=== PATIENT | female | born 1960 | race Caucasian/White ===

== ENCOUNTER 2017-08-24 11:00 | Observation (INO) | payer OTHER ==
[2017-08-24] MEDS ORDERED: NS 1,000 ML IV ONE (11:19)
--- NOTE | 2017-08-24 11:35 | CPEKG ---
Heart Rate: 72 RR Interval: 833 P-R Interval: 156 QRSD Interval: 76 QT Interval: 380 QTC Interval: 416 P [place]: 65 QRS [place]: 79 T Wave [place]: 24 EKG Severity - BORDERLINE ECG - EKG Impression: SINUS RHYTHM EKG Impression: PROBABLE LEFT ATRIAL ABNORMALITY Electronically Signed By: Santos Ortiz 24-Aug-2017 14:14:08
[2017-08-24 11:50] LABS: PLATELET COUNT 128 10^3/uL (150-400)
[2017-08-24 12:06] LABS: INR 1.09 (0.83-1.16)
--- NOTE | 2017-08-24 12:21 | PDHPUP ---
History & Physical Update H&P update statement: This history and physical update is based on an assessment of the patient which was completed after admission or registration (within 24 hours), but prior to the surgery/procedure. H&P update: H&P reviewed & patient examined, no change in patient's condition since H&P completed
[2017-08-24] MEDS ORDERED: MIDAZOLAM 2 MG/2 ML VIAL IVP ONE (12:42)
--- NOTE | 2017-08-24 12:42 | PDANEPAE ---
ANE History of Present Illness 57 yo for svt ablation ANE Past Medical History - Cardiovascular History Hx Hypertension: No Hx Arrhythmias: Yes Hx Chest Pain: No Hx Coronary Artery / Peripheral Vascular Disease: No Hx CHF / Valvular Disease: Yes - Pulmonary History Hx COPD: No Hx Asthma/Reactive Airway Disease: No Hx Recent Upper Respiratory Infection: No Hx Oxygen in Use at Home: No ANE Review of Systems Review of Systems: - Exercise capacity METS (RN): 4 METS ANE Patient History - Allergies Allergies/Adverse Reactions: No Known Allergies Allergy (Unverified 08/17/17 10:15) - Home Medications Home medications: home medication list seen and reviewed Home Medications: Cholecalciferol Vit D3 [Vitamin D3 (*)] 50,000 unit PO Q21D 08/19/17 [Last Taken Unknown] Metoprolol Succinate Xr [Toprol Xl 50 mg (*)] 50 mg PO DAILY 08/19/17 [Last Taken Unknown] Triamterene/Hydrochlorothiazid [Triamterene-Hctz 75-50 mg Tab] 1 each PO DAILY 08/19/17 [Last Taken Unknown] Warfarin Sodium [Coumadin 5MG (*)] 5 mg PO DAILY16 08/19/17 [Last Taken Unknown] - NPO status NPO Status: no food or drink >8 hours - Anes Hx Anes Hx: no prior problems ANE Labs/Vital Signs - Labs Result Diagrams: 08/24/17 11:35 08/24/17 11:35 ANE Physical Exam - Airway Neck exam: FROM Mallampati Score: Class 2 Mouth exam: normal dental/mouth exam - Pulmonary Pulmonary: no respiratory distress - Cardiovascular Cardiovascular: regular rate and rhythym ANE Anesthesia Plan Anesthesia Plan: general endotracheal anesthesia
[2017-08-24] MEDS ORDERED: ISOPROTERENOL HCL/D5W 0.2 MG/50 ML BAG IV ONE (12:52)
[2017-08-24] MEDS ORDERED: HEPARIN 10,000 UNIT/10 ML MDV ONE (12:52)
[2017-08-24] MEDS ORDERED: LIDOCAINE 1% 300 MG/30 ML SDV ONE (12:52)
[2017-08-24] MEDS ORDERED: BUPIVACAINE 0.5% 30 ML SDV ONE (12:52)
[2017-08-24] MEDS ORDERED: REMIFENTANIL HCL 1 MG VIAL ONE (13:16)
[2017-08-24] MEDS ORDERED: fentaNYL 100 MCG/2 ML INJ ONE (13:16)
[2017-08-24] MEDS ORDERED: PROPOFOL/EMULSION 500 MG/50 ML BOTTLE IV ONE (13:17)
[2017-08-24] MEDS ORDERED: ATROPINE SULFATE 1 MG/10 ML SYR ONE (15:50)
--- NOTE | 2017-08-24 16:17 | POSTANESTH ---
Post Anesthetic Evaluation Cardiovascular Status: Normal, Stable Respiratory Status: Normal, Stable Level of Consciousness/Mental Status: Can Participate in Eval Pain Control: Adequate, Prn Tx Ordered Nausea/Vomiting Control: Adequate, Prn Tx Ordered Complications Possibly Related to Anesthesia: None Noted
--- NOTE | 2017-08-24 16:22 | EPPROC ---
Electrophysiology Procedure Note: ELECTROPHYSIOLOGIC STUDY AND CATHETER MEDIATED ABLATION OF SLOW/FAST AV ROBERTO REENTRY TACHYCARDIA PROCEDURES PERFORMED: 36464-36 EP evaluation with RA/RV/LA pace/record, with arrhythmia induction 03775-97 EP evaluation with RA/RV pace record, insert/reposition catheter, with arrhythmia induction 62390 Intracardiac catheter ablation, SVT arrhythmogenic focus 77083 3D mapping Fluoroscopy LINQ monitor implant INDICATION: Recurrent SVT despite beta consuelo therapy x 8 years PROCEDURE: Catheters & Anesthesia: The patient arrived in the Electrophysiology Laboratory in the fasting state. The right clavicular region, right groin, and left groin area were prepped and draped in the usual sterile manner. Anesthesiologist Dr. Meadows administered general anesthesia. Appropriate non-invasive blood pressure, pulse oximetry and end-tidal CO2 monitoring was established. All catheters were placed percutaneously using the modified Seldinger technique , and advanced into position under fluoroscopic guidance. One #6 [place] hexapolar non-deflectable electrode catheter was inserted into the right atrial appendage via the left femoral vein (2mm spacing; except the proximal ring which was 25cm from the tip used for unipolar recordings). One #7 [place] deflectable octapolar electrode catheter was advanced to the His-bundle position via the left femoral vein (2mm spacing). One #7 [place] deflectable quadrapolar catheter was advanced to the anteroseptal right ventricle via the right femoral vein. One #7 [place] deflectable catheter with 10 pairs of electrodes was placed via the right femoral vein into the coronary sinus. Heparin was given to keep ACT > 180 s. Programmed stimulation was performed from the right atrium, right ventricle and coronary sinus (left atrium). Parahisian pacing demonstrated constant H-A interval with changing V-A intervals and stimulus-A intervals during capture and loss of capture of proximal RBB proving retrograde conduction over AV node. AVNRT was induced easily at baseline without meds with PAC. Ventricular extrastimuli delivered during tachycardia without altering antegrade His bundle activation did not advance next atrial potential, indicating that the tachycardia was not utilizing an accessory pathway for retrograde conduction. VA interval was 10 ms. Post entrainment of the tachycardia from the ventricle, there was VAHV response. Mapping of the right atrium and coronary sinus during AVNRT identified earliest atrial activation above the tendon of [place] at a level slightly posterior to the level of the His bundle, consistent with retrograde conduction over the fast AV roberto pathway. A #8 [place] deflectable quadrapolar electrode catheter (2mm-5mm-2mm spacing) with 4 mm tip electrode and sensor for the 3D mapping Carto system was advanced to the right atrium. 3 D mapping of the inter-atrial septum and coronary sinus was performed and location of the AV node was marked. A SL2 sheath was used. RF applications were delivered to the region between the tricuspid annulus and the coronary sinus ostium, at the level of the upper edge of the coronary sinus ostium. Radiofrequency applications were also delivered along the roof of the proximal coronary sinus. Junctional rhythm occurred during all of the RF applications. Programmed stimulation was continued post ablation at baseline and during graded doses of isoproterenol upto 4mcg/min. Sustained AVNRT was not inducible. There were no echo beats. 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 She has not had atrial fibrillation. Therefore a LINQ monitor was placed at the end of the procedure in the parasternal L 4thICS to monitor for atrial fibrillation. The catheters were removed. The long sheath was changed to a short 9 Fr sheath. The patient was transferred to the cardiovascular holding area in stable condition. Vascular access sheaths were removed in the holding area. There were no apparent complications. Results: A. Spontaneous Intervals: Pre ablation SCL 790 ms AH 80 ms HV 35 ms Post ablation SCL 770 ms AH 75 ms HV 35 ms B. Antegrade AV roberto function (decremental pacing) Pre ablation FPERP 440 ms , AH jump then SVT occurred reproducibly Post ablation FPERP 400 ms WBB CL 390 ms C. Retrograde AV roberto function (decremental pacing) Pre ablation FPERP 400 ms WBB CL 390 ms D. Arrhythmias: Sustained slow/fast AVNRT Cycle length 400 ms, AH interval 360 ms, GRAY interval 40 ms VA interval 10 ms CONCLUSIONS 1. AV roberto reentrant tachycardia using the slow AV roberto pathway for antegrade conduction and the fast AV roberto pathway for retrograde conduction. ( Slow/fast AVNRT). 2. Successful ablation of the slow AV roberto pathway with elimination of 1:1 antegrade conduction over the slow AV roberto pathway, all retrograde conduction over the slow AV roberto pathway and the inducibility of AVNRT. 3. No complications. 4. LINQ monitor implant to assess for AFIB in patient with mitral stenosis. Patient Problems: Problems Problem Status Onset Supraventricular tachycardia Acute
--- NOTE | 2017-08-24 16:22 | EPPROC ---
Electrophysiology Procedure Note: ELECTROPHYSIOLOGIC STUDY AND CATHETER MEDIATED ABLATION OF SLOW/FAST AV ROBERTO REENTRY TACHYCARDIA PROCEDURES PERFORMED: 24299-47 EP evaluation with RA/RV/LA pace/record, with arrhythmia induction 46751-52 EP evaluation with RA/RV pace record, insert/reposition catheter, with arrhythmia induction 70220 Intracardiac catheter ablation, SVT arrhythmogenic focus 17156 3D mapping Fluoroscopy LINQ monitor implant INDICATION: Recurrent SVT despite beta consuelo therapy x 8 years PROCEDURE: Catheters & Anesthesia: The patient arrived in the Electrophysiology Laboratory in the fasting state. The right clavicular region, right groin, and left groin area were prepped and draped in the usual sterile manner. Anesthesiologist Dr. Meadows administered general anesthesia. Appropriate non-invasive blood pressure, pulse oximetry and end-tidal CO2 monitoring was established. All catheters were placed percutaneously using the modified Seldinger technique , and advanced into position under fluoroscopic guidance. One #6 [place] hexapolar non-deflectable electrode catheter was inserted into the right atrial appendage via the left femoral vein (2mm spacing; except the proximal ring which was 25cm from the tip used for unipolar recordings). One #7 [place] deflectable octapolar electrode catheter was advanced to the His-bundle position via the left femoral vein (2mm spacing). One #7 [place] deflectable quadrapolar catheter was advanced to the anteroseptal right ventricle via the right femoral vein. One #7 [place] deflectable catheter with 10 pairs of electrodes was placed via the right femoral vein into the coronary sinus. Heparin was given to keep ACT > 180 s. Programmed stimulation was performed from the right atrium, right ventricle and coronary sinus (left atrium). Parahisian pacing demonstrated constant H-A interval with changing V-A intervals and stimulus-A intervals during capture and loss of capture of proximal RBB proving retrograde conduction over AV node. AVNRT was induced easily at baseline without meds with PAC. Ventricular extrastimuli delivered during tachycardia without altering antegrade His bundle activation did not advance next atrial potential, indicating that the tachycardia was not utilizing an accessory pathway for retrograde conduction. VA interval was 10 ms. Post entrainment of the tachycardia from the ventricle, there was VAHV response. Mapping of the right atrium and coronary sinus during AVNRT identified earliest atrial activation above the tendon of [place] at a level slightly posterior to the level of the His bundle, consistent with retrograde conduction over the fast AV roberto pathway. A #8 [place] deflectable quadrapolar electrode catheter (2mm-5mm-2mm spacing) with 4 mm tip electrode and sensor for the 3D mapping Carto system was advanced to the right atrium. 3 D mapping of the inter-atrial septum and coronary sinus was performed and location of the AV node was marked. A SL2 sheath was used. RF applications were delivered to the region between the tricuspid annulus and the coronary sinus ostium, at the level of the upper edge of the coronary sinus ostium. Radiofrequency applications were also delivered along the roof of the proximal coronary sinus. Junctional rhythm occurred during all of the RF applications. Programmed stimulation was continued post ablation at baseline and during graded doses of isoproterenol upto 4mcg/min. Sustained AVNRT was not inducible. There were no echo beats. 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 She has not had atrial fibrillation. Therefore a LINQ monitor was placed at the end of the procedure in the parasternal L 4thICS to monitor for atrial fibrillation. The catheters were removed. The long sheath was changed to a short 9 Fr sheath. The patient was transferred to the cardiovascular holding area in stable condition. Vascular access sheaths were removed in the holding area. There were no apparent complications. Results: A. Spontaneous Intervals: Pre ablation SCL 790 ms AH 80 ms HV 35 ms Post ablation SCL 770 ms AH 75 ms HV 35 ms B. Antegrade AV roberto function (decremental pacing) Pre ablation FPERP 440 ms , AH jump then SVT occurred reproducibly Post ablation FPERP 400 ms WBB CL 390 ms C. Retrograde AV roberto function (decremental pacing) Pre ablation FPERP 400 ms WBB CL 390 ms D. Arrhythmias: Sustained slow/fast AVNRT Cycle length 400 ms, AH interval 360 ms, GRAY interval 40 ms VA interval 10 ms CONCLUSIONS 1. AV roberto reentrant tachycardia using the slow AV roberto pathway for antegrade conduction and the fast AV roberto pathway for retrograde conduction. ( Slow/fast AVNRT). 2. Successful ablation of the slow AV roberto pathway with elimination of 1:1 antegrade conduction over the slow AV roberto pathway, all retrograde conduction over the slow AV roberto pathway and the inducibility of AVNRT. 3. No complications. 4. LINQ monitor implant to assess for AFIB in patient with mitral stenosis. Patient Problems: Problems Problem Status Onset Supraventricular tachycardia Acute
--- NOTE | 2017-08-24 16:22 | EPPROC ---
Electrophysiology Procedure Note: ELECTROPHYSIOLOGIC STUDY AND CATHETER MEDIATED ABLATION OF SLOW/FAST AV ROBERTO REENTRY TACHYCARDIA PROCEDURES PERFORMED: 18572-63 EP evaluation with RA/RV/LA pace/record, with arrhythmia induction 70906-65 EP evaluation with RA/RV pace record, insert/reposition catheter, with arrhythmia induction 75057 Intracardiac catheter ablation, SVT arrhythmogenic focus 16381 3D mapping Fluoroscopy LINQ monitor implant INDICATION: Recurrent SVT despite beta consuelo therapy x 8 years PROCEDURE: Catheters & Anesthesia: The patient arrived in the Electrophysiology Laboratory in the fasting state. The right clavicular region, right groin, and left groin area were prepped and draped in the usual sterile manner. Anesthesiologist Dr. Meadows administered general anesthesia. Appropriate non-invasive blood pressure, pulse oximetry and end-tidal CO2 monitoring was established. All catheters were placed percutaneously using the modified Seldinger technique , and advanced into position under fluoroscopic guidance. One #6 [place] hexapolar non-deflectable electrode catheter was inserted into the right atrial appendage via the left femoral vein (2mm spacing; except the proximal ring which was 25cm from the tip used for unipolar recordings). One #7 [place] deflectable octapolar electrode catheter was advanced to the His-bundle position via the left femoral vein (2mm spacing). One #7 [place] deflectable quadrapolar catheter was advanced to the anteroseptal right ventricle via the right femoral vein. One #7 [place] deflectable catheter with 10 pairs of electrodes was placed via the right femoral vein into the coronary sinus. Heparin was given to keep ACT > 180 s. Programmed stimulation was performed from the right atrium, right ventricle and coronary sinus (left atrium). Parahisian pacing demonstrated constant H-A interval with changing V-A intervals and stimulus-A intervals during capture and loss of capture of proximal RBB proving retrograde conduction over AV node. AVNRT was induced easily at baseline without meds with PAC. Ventricular extrastimuli delivered during tachycardia without altering antegrade His bundle activation did not advance next atrial potential, indicating that the tachycardia was not utilizing an accessory pathway for retrograde conduction. VA interval was 10 ms. Post entrainment of the tachycardia from the ventricle, there was VAHV response. Mapping of the right atrium and coronary sinus during AVNRT identified earliest atrial activation above the tendon of [place] at a level slightly posterior to the level of the His bundle, consistent with retrograde conduction over the fast AV roberto pathway. A #8 [place] deflectable quadrapolar electrode catheter (2mm-5mm-2mm spacing) with 4 mm tip electrode and sensor for the 3D mapping Carto system was advanced to the right atrium. 3 D mapping of the inter-atrial septum and coronary sinus was performed and location of the AV node was marked. A SL2 sheath was used. RF applications were delivered to the region between the tricuspid annulus and the coronary sinus ostium, at the level of the upper edge of the coronary sinus ostium. Radiofrequency applications were also delivered along the roof of the proximal coronary sinus. Junctional rhythm occurred during all of the RF applications. Programmed stimulation was continued post ablation at baseline and during graded doses of isoproterenol upto 4mcg/min. Sustained AVNRT was not inducible. There were no echo beats. 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 She has not had atrial fibrillation. Therefore a LINQ monitor was placed at the end of the procedure in the parasternal L 4thICS to monitor for atrial fibrillation. The catheters were removed. The long sheath was changed to a short 9 Fr sheath. The patient was transferred to the cardiovascular holding area in stable condition. Vascular access sheaths were removed in the holding area. There were no apparent complications. Results: A. Spontaneous Intervals: Pre ablation SCL 790 ms AH 80 ms HV 35 ms Post ablation SCL 770 ms AH 75 ms HV 35 ms B. Antegrade AV roberto function (decremental pacing) Pre ablation FPERP 440 ms , AH jump then SVT occurred reproducibly Post ablation FPERP 400 ms WBB CL 390 ms C. Retrograde AV roberto function (decremental pacing) Pre ablation FPERP 400 ms WBB CL 390 ms D. Arrhythmias: Sustained slow/fast AVNRT Cycle length 400 ms, AH interval 360 ms, GRAY interval 40 ms VA interval 10 ms CONCLUSIONS 1. AV roberto reentrant tachycardia using the slow AV roberto pathway for antegrade conduction and the fast AV roberto pathway for retrograde conduction. ( Slow/fast AVNRT). 2. Successful ablation of the slow AV roberto pathway with elimination of 1:1 antegrade conduction over the slow AV roberto pathway, all retrograde conduction over the slow AV roberto pathway and the inducibility of AVNRT. 3. No complications. 4. LINQ monitor implant to assess for AFIB in patient with mitral stenosis. Patient Problems: Problems Problem Status Onset Supraventricular tachycardia Acute
[2017-08-24] MEDS ORDERED: ACETAMINOPHEN 325 MG TAB PO PRN (16:23)
--- NOTE | 2017-08-24 16:51 | CPEKG ---
Heart Rate: 101 RR Interval: 594 P-R Interval: 180 QRSD Interval: 88 QT Interval: 360 QTC Interval: 467 P [place]: 65 QRS [place]: 82 T Wave [place]: -22 EKG Severity - ABNORMAL ECG - EKG Impression: SINUS TACHYCARDIA EKG Impression: ATRIAL PREMATURE COMPLEX EKG Impression: LEFT ATRIAL ABNORMALITY EKG Impression: BORDERLINE T ABNORMALITIES, INFERIOR LEADS Electronically Signed By: Santos Ortiz 24-Aug-2017 17:54:40
--- NOTE | 2017-08-24 16:51 | CPEKG ---
Heart Rate: 101 RR Interval: 594 P-R Interval: 180 QRSD Interval: 88 QT Interval: 360 QTC Interval: 467 P [place]: 65 QRS [place]: 82 T Wave [place]: -22 EKG Severity - ABNORMAL ECG - EKG Impression: SINUS TACHYCARDIA EKG Impression: ATRIAL PREMATURE COMPLEX EKG Impression: LEFT ATRIAL ABNORMALITY EKG Impression: BORDERLINE T ABNORMALITIES, INFERIOR LEADS Electronically Signed By: Santos Oritz 24-Aug-2017 17:54:40
[2017-08-24] MEDS ORDERED: PROTOCOL POTASSIUM 1 DOSE MISC PRN (17:49)
[2017-08-24] MEDS ORDERED: POTASSIUM CL 10 MEQ TAB PO ONE (17:54)
[2017-08-24] MEDS ORDERED: MAGNESIUM SULF 1 GM/DEXTROSE 100 ML IV ONE (18:00)
[2017-08-24] MEDS ORDERED: POTASSIUM CL 20 MEQ TAB PO ONE (22:36)
[2017-08-24] MEDS ORDERED: POTASSIUM CL 20 MEQ TAB ONE (22:40)
[2017-08-25 03:40] VITALS: TEMP 98.1
[2017-08-25 03:58] LABS: PLATELET COUNT 123 10^3/uL (150-400)
[2017-08-25 04:08] LABS: INR 1.12 (0.83-1.16); PROTIME(PATIENT) 14.3 SEC (12.0-15.0)
[2017-08-25 04:17] LABS: CREATINE KINASE 51 IU/L (0-156)
[2017-08-25 07:25] VITALS: BP 110/63; PULSE 71; RESP 16; O2SAT 96
--- NOTE | 2017-08-25 08:57 | CPEKG ---
Heart Rate: 81 RR Interval: 741 P-R Interval: 168 QRSD Interval: 84 QT Interval: 364 QTC Interval: 423 P [place]: 70 QRS [place]: 76 T Wave [place]: 26 EKG Severity - NORMAL ECG - EKG Impression: SINUS RHYTHM Electronically Signed By: Santos Ortiz 25-Aug-2017 17:38:26
--- NOTE | 2017-08-25 08:57 | CPEKG ---
Heart Rate: 81 RR Interval: 741 P-R Interval: 168 QRSD Interval: 84 QT Interval: 364 QTC Interval: 423 P [place]: 70 QRS [place]: 76 T Wave [place]: 26 EKG Severity - NORMAL ECG - EKG Impression: SINUS RHYTHM Electronically Signed By: Santos Ortiz 25-Aug-2017 17:38:26
[2017-08-25] MEDS ORDERED: METOPROLOL SUCCINATE XR 50 MG TAB PO SCH (09:00)
--- NOTE | 2017-08-25 09:46 | ECHO ---
[email or web address] [address] [address] Main: [phone] Fax: Transthoracic Echocardiogram Name: JENNIFER GARCIA MR#: [id number] Study Date: 08/25/2017 Study Time: 07:44 AM Date of : 1960 Age: 57 year(s) Height: 175.3 cm (69 in.) Weight: 70.76 kg (156 lb.) BSA: 1.86 m2 Gender: Female Examination: Echo Indication: F/U post EP study, post link placement Image Quality: Contrast: Requested by: Beni Mora BP: 110 mmHg/63 mmHg Heart Rate: Rhythm: Indication: F/U post EP study, post link placement Procedure Staff Library Clerk Talking Books: Catherine Melendez Physician: Beni Mora Requesting Provider: Conclusions: Normal global systolic LV function. The ejection fraction is estimated to be 60-65 %. The left atrium is moderately to severely dilated. Rheumatic moderate mitral stenosis. MV max PG is 15mmHG. MV mean PG is 9mmHG.. Mild tricuspid regurgitation is present. RVSP is 37mmHG. Trivial anterior pericardial effusion. Measurements: Chambers Valvular Assessment AV/MV Valvular Assessment TV/PV Normal Normal Normal Name Value Range Name Value Range Name Value Range LVDd (2D): 4.5 cm (3.9 cm-5.3 AV meanP mmHg ( - ) TR Vmax: 2.82 mm/s ( - ) cm) MV E Vmax: 2.04 m/s ( - ) TR PGmax: 32 mmHg ( - ) EF Range: 60-65 % MV A Vmax: 1.72 m/s ( - ) syst. PAP: 37 mmHg ( - ) MV E/A: 1.19 ( - ) MV meanP mmHg ( - ) MV PHT: 0.147 s ( - ) MVA (PHT): 1.5 s ( - ) Continued Measurements: Chambers Valvular Assessment AV/MV Valvular Assessment TV/PV Name Value Name Value Name Value LADs: 3.8 cm MV DecTime: 539 m/s CVP (est.): 5 mmHg LADs Lon.4 cm MV E/E' Septal: 36.70 LA Area: 29.2 cm2 MV E/E' Lateral: 41.90 MV VTI: 64.80 cm Patient: JENNIFER GARCIA Study Date: 08/25/2017 Page 1 of 2 07:44 AM Findings: Left Ventricle: Normal size left ventricle. Normal global systolic LV function. The ejection fraction is estimated to be 60-65 %. Diastolic dysfunction is present. . Right Ventricle: Normal size right ventricle. Left Atrium: The left atrium is moderately to severely dilated. Right Atrium: The right atrium is normal in size. Mitral Valve: Mild mitral valve regurgitation is present. Rheumatic moderate mitral stenosis. MV max PG is 15mmHG. MV mean PG is 9mmHG.. Aortic Valve: The aortic valve is tri-leaflet. Tricuspid Valve: The tricuspid valve appears normal. Mild tricuspid regurgitation is present. RVSP is 37mmHG. Pulmonic Valve: The pulmonic valve is normal in appearance. Trivial pulmonic valve regurgitation. Pericardium: Trivial anterior pericardial effusion. Pericardial effusion visualized pre ablation.. (No Signature Object) Patient: JENNIFER GARCIA Study Date: 08/25/2017 Page 2 of 2 07:44 AM [id number]
--- NOTE | 2017-08-25 09:46 | ECHO ---
[email or web address] [address] [address] Main: [phone] Fax: Transthoracic Echocardiogram Name: JENNIFER GARCIA MR#: [id number] Study Date: 08/25/2017 Study Time: 07:44 AM Date of : 1960 Age: 57 year(s) Height: 175.3 cm (69 in.) Weight: 70.76 kg (156 lb.) BSA: 1.86 m2 Gender: Female Examination: Echo Indication: F/U post EP study, post link placement Image Quality: Contrast: Requested by: Beni Mora BP: 110 mmHg/63 mmHg Heart Rate: Rhythm: Indication: F/U post EP study, post link placement Procedure Staff Bolter Helper: Catherine Melendez Physician: Beni Mora Requesting Provider: Conclusions: Normal global systolic LV function. The ejection fraction is estimated to be 60-65 %. The left atrium is moderately to severely dilated. Rheumatic moderate mitral stenosis. MV max PG is 15mmHG. MV mean PG is 9mmHG.. Mild tricuspid regurgitation is present. RVSP is 37mmHG. Trivial anterior pericardial effusion. Measurements: Chambers Valvular Assessment AV/MV Valvular Assessment TV/PV Normal Normal Normal Name Value Range Name Value Range Name Value Range LVDd (2D): 4.5 cm (3.9 cm-5.3 AV meanP mmHg ( - ) TR Vmax: 2.82 mm/s ( - ) cm) MV E Vmax: 2.04 m/s ( - ) TR PGmax: 32 mmHg ( - ) EF Range: 60-65 % MV A Vmax: 1.72 m/s ( - ) syst. PAP: 37 mmHg ( - ) MV E/A: 1.19 ( - ) MV meanP mmHg ( - ) MV PHT: 0.147 s ( - ) MVA (PHT): 1.5 s ( - ) Continued Measurements: Chambers Valvular Assessment AV/MV Valvular Assessment TV/PV Name Value Name Value Name Value LADs: 3.8 cm MV DecTime: 539 m/s CVP (est.): 5 mmHg LADs Lon.4 cm MV E/E' Septal: 36.70 LA Area: 29.2 cm2 MV E/E' Lateral: 41.90 MV VTI: 64.80 cm Patient: JENNIFER GARCIA Study Date: 08/25/2017 Page 1 of 2 07:44 AM Findings: Left Ventricle: Normal size left ventricle. Normal global systolic LV function. The ejection fraction is estimated to be 60-65 %. Diastolic dysfunction is present. . Right Ventricle: Normal size right ventricle. Left Atrium: The left atrium is moderately to severely dilated. Right Atrium: The right atrium is normal in size. Mitral Valve: Mild mitral valve regurgitation is present. Rheumatic moderate mitral stenosis. MV max PG is 15mmHG. MV mean PG is 9mmHG.. Aortic Valve: The aortic valve is tri-leaflet. Tricuspid Valve: The tricuspid valve appears normal. Mild tricuspid regurgitation is present. RVSP is 37mmHG. Pulmonic Valve: The pulmonic valve is normal in appearance. Trivial pulmonic valve regurgitation. Pericardium: Trivial anterior pericardial effusion. Pericardial effusion visualized pre ablation.. (No Signature Object) Patient: JENNIFER GARCIA Study Date: 08/25/2017 Page 2 of 2 07:44 AM [id number]
--- NOTE | 2017-08-25 09:46 | ECHO ---
[email or web address] [address] [address] Main: [phone] Fax: Transthoracic Echocardiogram Name: JENNIFER GARCIA MR#: [id number] Study Date: 08/25/2017 Study Time: 07:44 AM Date of : 1960 Age: 57 year(s) Height: 175.3 cm (69 in.) Weight: 70.76 kg (156 lb.) BSA: 1.86 m2 Gender: Female Examination: Echo Indication: F/U post EP study, post link placement Image Quality: Contrast: Requested by: Beni Mora BP: 110 mmHg/63 mmHg Heart Rate: Rhythm: Indication: F/U post EP study, post link placement Procedure Staff Pain Management Physician: Catherine Melendez Physician: Beni Mora Requesting Provider: Conclusions: Normal global systolic LV function. The ejection fraction is estimated to be 60-65 %. The left atrium is moderately to severely dilated. Rheumatic moderate mitral stenosis. MV max PG is 15mmHG. MV mean PG is 9mmHG.. Mild tricuspid regurgitation is present. RVSP is 37mmHG. Trivial anterior pericardial effusion. Measurements: Chambers Valvular Assessment AV/MV Valvular Assessment TV/PV Normal Normal Normal Name Value Range Name Value Range Name Value Range LVDd (2D): 4.5 cm (3.9 cm-5.3 AV meanP mmHg ( - ) TR Vmax: 2.82 mm/s ( - ) cm) MV E Vmax: 2.04 m/s ( - ) TR PGmax: 32 mmHg ( - ) EF Range: 60-65 % MV A Vmax: 1.72 m/s ( - ) syst. PAP: 37 mmHg ( - ) MV E/A: 1.19 ( - ) MV meanP mmHg ( - ) MV PHT: 0.147 s ( - ) MVA (PHT): 1.5 s ( - ) Continued Measurements: Chambers Valvular Assessment AV/MV Valvular Assessment TV/PV Name Value Name Value Name Value LADs: 3.8 cm MV DecTime: 539 m/s CVP (est.): 5 mmHg LADs Lon.4 cm MV E/E' Septal: 36.70 LA Area: 29.2 cm2 MV E/E' Lateral: 41.90 MV VTI: 64.80 cm Patient: JENNIFER GARCIA Study Date: 08/25/2017 Page 1 of 2 07:44 AM Findings: Left Ventricle: Normal size left ventricle. Normal global systolic LV function. The ejection fraction is estimated to be 60-65 %. Diastolic dysfunction is present. . Right Ventricle: Normal size right ventricle. Left Atrium: The left atrium is moderately to severely dilated. Right Atrium: The right atrium is normal in size. Mitral Valve: Mild mitral valve regurgitation is present. Rheumatic moderate mitral stenosis. MV max PG is 15mmHG. MV mean PG is 9mmHG.. Aortic Valve: The aortic valve is tri-leaflet. Tricuspid Valve: The tricuspid valve appears normal. Mild tricuspid regurgitation is present. RVSP is 37mmHG. Pulmonic Valve: The pulmonic valve is normal in appearance. Trivial pulmonic valve regurgitation. Pericardium: Trivial anterior pericardial effusion. Pericardial effusion visualized pre ablation.. (No Signature Object) Patient: JENNIFER GARCIA Study Date: 08/25/2017 Page 2 of 2 07:44 AM [id number]
--- NOTE | 2017-08-25 10:12 | ASMTCMCOM ---
CM Note CM Note Notes: 08/25/2017 Case Management Note Reviewed chart, spoke w/RN. No case management d/c needs identified d/t pt age, marital status and activity levels prior to admission. No PT or OT evals ordered. Case Management d/c poc: home independent when medically stable with follow up as directed. Case Management available if needs change. Date Signed: 08/25/2017 10:11 AM Electronically Signed By:Ely Ayala RN
--- NOTE | 2017-08-25 11:41 | ASDISCHSUM ---
Discharge Information Plan Status:Home with No Needs Medically Cleared to Leave:08/25/2017 Discharge Date:08/25/2017 11:30 AM CM D/C Disposition:Home, Routine, Self-Care ADT D/C Disposition:Home, Routine, Self-Care Projected Discharge Date:08/25/2017 11:30 AM Transportation at D/C:Family Discharge Delay Reason: Follow-Up Date:08/25/2017 11:30 AM Discharge Slot: Final Diagnosis: Placement Information Patient Contact Information Contact Name:VANI Relationship:Other Address:[address] Work Phone: City:[place] Alternate Phone: [facility]/Zip Code:[place] [address] Email: Financial Information Financial Class:HMO and PPO Plans Primary Plan Desc:[employer]NA [employer]IGE PPO Primary Plan Number:[id number] Secondary Plan Desc: Secondary Plan Number: Assessment Information [facility] CM Progress Note CM Note CM Note Notes: 08/25/2017 Case Management Note Reviewed chart, spoke w/RN. No case management d/c needs identified d/t pt age, marital status and activity levels prior to admission. No PT or OT evals ordered. Case Management d/c poc: home independent when medically stable with follow up as directed. Case Management available if needs change. Date Signed: 08/25/2017 10:11 AM Electronically Signed By:Ely Ayala RN Intervention Information
--- NOTE | 2017-08-25 11:41 | ASDISCHSUM ---
Discharge Information Plan Status:Home with No Needs Medically Cleared to Leave:08/25/2017 Discharge Date:08/25/2017 11:30 AM CM D/C Disposition:Home, Routine, Self-Care ADT D/C Disposition:Home, Routine, Self-Care Projected Discharge Date:08/25/2017 11:30 AM Transportation at D/C:Family Discharge Delay Reason: Follow-Up Date:08/25/2017 11:30 AM Discharge Slot: Final Diagnosis: Placement Information Patient Contact Information Contact Name:VANI Relationship:Other Address:[address] Work Phone: City:[place] Alternate Phone: [facility]/Zip Code:[place] [address] Email: Financial Information Financial Class:HMO and PPO Plans Primary Plan Desc:DONNA PAIGE PPO Primary Plan Number:[id number] Secondary Plan Desc: Secondary Plan Number: Assessment Information [facility] CM Progress Note CM Note CM Note Notes: 08/25/2017 Case Management Note Reviewed chart, spoke w/RN. No case management d/c needs identified d/t pt age, marital status and activity levels prior to admission. No PT or OT evals ordered. Case Management d/c poc: home independent when medically stable with follow up as directed. Case Management available if needs change. Date Signed: 08/25/2017 10:11 AM Electronically Signed By:Ely Ayala RN Intervention Information
--- NOTE | 2017-08-25 11:41 | ASDISCHSUM ---
Discharge Information Plan Status:Home with No Needs Medically Cleared to Leave:08/25/2017 Discharge Date:08/25/2017 11:30 AM CM D/C Disposition:Home, Routine, Self-Care ADT D/C Disposition:Home, Routine, Self-Care Projected Discharge Date:08/25/2017 11:30 AM Transportation at D/C:Family Discharge Delay Reason: Follow-Up Date:08/25/2017 11:30 AM Discharge Slot: Final Diagnosis: Placement Information Patient Contact Information Contact Name:VANI Relationship:Other Address:[address] Work Phone: City:[place] Alternate Phone: [facility]/Zip Code:[place] [address] Email: Financial Information Financial Class:HMO and PPO Plans Primary Plan Desc:DONNA PAIGE PPO Primary Plan Number:[id number] Secondary Plan Desc: Secondary Plan Number: Assessment Information [facility] CM Progress Note CM Note CM Note Notes: 08/25/2017 Case Management Note Reviewed chart, spoke w/RN. No case management d/c needs identified d/t pt age, marital status and activity levels prior to admission. No PT or OT evals ordered. Case Management d/c poc: home independent when medically stable with follow up as directed. Case Management available if needs change. Date Signed: 08/25/2017 10:11 AM Electronically Signed By:Ely Ayala RN Intervention Information
[2017-08-25] MEDS ORDERED: WARFARIN SODIUM 5 MG TAB PO SCH (16:00)
--- NOTE | 2017-08-26 04:17 | GDS ---
[f rep st] DISCHARGE SUMMARY DISCHARGE DIAGNOSES: 1. Supraventricular tachycardia. 2. Status post atrioventricular roni reentrant tachycardia ablation. 3. Mitral valve stenosis. BRIEF HISTORY: This is a 57-year-old woman, who has had palpitations for 8 years despite taking beta blockers. She has had documented SVT. She has symptoms of palpitations and lightheadedness. She also has a history of mitral stenosis, likely rheumatic in origin. She is from [place] and was placed on Coumadin by her physician there. Due to her symptoms of palpitations and in the setting of MS, it was thought it was likely atrial fibrillation. HOSPITAL COURSE: Dr. Mora performed ablation of AVNRT with successful ablation of the slow AV roni pathway. She did have a LINQ monitor implanted to monitor for atrial fibrillation. She did well overnight without any SVT, palpitations, chest pain or shortness of breath. Her son -in- law is here today to interpret for us. She denies any pain at groin sites. TESTING DONE: Echocardiogram demonstrated ejection fraction of 60% to 65%. Left atrium is moderately to severely dilated. There are rheumatic MS, mild TR , and trivial pericardial effusion. EKG demonstrated sinus rhythm. air sampling and monitoring demonstrated sinus rhythm with occasional PVCs. LABORATORY WORK: WBC is 8.78, hemoglobin 12.5, hematocrit 38.6, WBC 123. INR is 1.12. Troponin is 0.577. CK-MB is 1.61. These are both elevated and to be expected post ablation. Sodium is 140, potassium 4.4, chloride 107, bicarb 24, BUN 12, creatinine 0.8, and glucose 60. Magnesium 2.2. PHYSICAL EXAMINATION: VITAL SIGNS: Blood pressure is 110/63, pulse is 71, respirations 16, temperature 36.7, O2 saturation on room air is 96%. GENERAL: She is alert and oriented x3, sitting up in bed, in no acute distress. CARDIAC : Regular rate and rhythm without murmur, rub, or gallop. LUNGS: Clear to auscultation. ABDOMEN: Soft and nontender. GROIN: Sites were without bruising or hematoma. EXTREMITIES: Lower extremities are warm. No discoloration. Bilateral pedal pulses +2. DISCHARGE INSTRUCTIONS: LINQ monitoring: Transmitting and monitoring were reviewed with the patient and her son-in-law and daughter, who speak Georgian. Reviewed and demonstrated use of patient anatomic pathology assistant symptom storage clicker. She was instructed not to do any lifting over 10 pounds or vigorous activity for 1 week. Further activity restrictions were provided in her written discharge instructions. DISCHARGE MEDICATIONS: She will continue with Coumadin. Metoprolol was cut in half from 50 mg to 12.5 mg, and she will continue the remainder of her home medications. FOLLOWUP: She has a followup for her LINQ monitor on August 31 at 3:30 and a followup with Dr. Mora on September 09 at 11:30. /[id number]/MODL MTDD
--- NOTE | 2017-08-28 10:11 | ECHO ---
[email or web address] [address] Main: [phone] Fax: Transesophageal Echocardiography Name: JENNIFER GARCIA MR#: [id number] Study Date: 08/24/2017 Study Time: 01:34 PM Date of : 1960 Age: 57 year(s) Height: ( ) Weight: ( ) BSA: Gender: Female Examination: JO ANN Indication: Pre EP Image Quality: Contrast: Requested by: Beni Mora Heart Rate: Rhythm: BP: / Procedure Staff Grubber: Chacorta Chambers Reading Physician: Beni Mora Requesting Provider: JO ANN Exam Details Conclusions: Normal global systolic LV function. Moderate mitral valve stenosis is present. The mitral valve appears rheumatic with a mean PG of 6 mmHg.. Measurements: Chambers Valvular Assessment AV/MV Valvular Assessment TV/PV Normal Normal Normal Name Value Range Name Value Range Name Value Range MV meanP mmHg ( - ) Additional Measurements: Valvular Assessment AV/MV Name Value MV VTI: 62.50 cm Findings: Left Ventricle: Normal global systolic LV function. Right Ventricle: Normal RV function. Left Atrial Appendage: Patient: JENNIFER GARCIA Study Date: 08/24/2017 Page 1 of 2 01:34 PM Good color flow doppler in the left atrial appendage. Normal PW-Doppler flow pattern. No thrombus in left appendage. Mitral Valve: Moderate mitral valve stenosis is present. The mitral valve appears rheumatic with a mean PG of 6 mmHg.. Aortic Valve: The aortic valve is normal in appearance and function. The aortic valve is tri-leaflet. Tricuspid Valve: The tricuspid valve is normal in appearance and function. Trivial tricuspid valve regurgitation. Pulmonic Valve: The pulmonic valve is normal in appearance and function. Aorta: The aorta is normal. Pericardium: Trivial pericardial effusion. l1n (No Signature Object) Patient: JENNIFER GARCIA Study Date: 08/24/2017 Page 2 of 2 01:34 PM [id number]
--- NOTE | 2017-08-28 10:11 | ECHO ---
[email or web address] [address] Main: [phone] Fax: Transesophageal Echocardiography Name: JENNIFER GARCIA MR#: [id number] Study Date: 08/24/2017 Study Time: 01:34 PM Date of : 1960 Age: 57 year(s) Height: ( ) Weight: ( ) BSA: Gender: Female Examination: JO ANN Indication: Pre EP Image Quality: Contrast: Requested by: Beni Mora Heart Rate: Rhythm: BP: / Procedure Staff Chief Program Officer: Chacorta Chambers Reading Physician: Beni Mora Requesting Provider: JO ANN Exam Details Conclusions: Normal global systolic LV function. Moderate mitral valve stenosis is present. The mitral valve appears rheumatic with a mean PG of 6 mmHg.. Measurements: Chambers Valvular Assessment AV/MV Valvular Assessment TV/PV Normal Normal Normal Name Value Range Name Value Range Name Value Range MV meanP mmHg ( - ) Additional Measurements: Valvular Assessment AV/MV Name Value MV VTI: 62.50 cm Findings: Left Ventricle: Normal global systolic LV function. Right Ventricle: Normal RV function. Left Atrial Appendage: Patient: JENNIFER GARCIA Study Date: 08/24/2017 Page 1 of 2 01:34 PM Good color flow doppler in the left atrial appendage. Normal PW-Doppler flow pattern. No thrombus in left appendage. Mitral Valve: Moderate mitral valve stenosis is present. The mitral valve appears rheumatic with a mean PG of 6 mmHg.. Aortic Valve: The aortic valve is normal in appearance and function. The aortic valve is tri-leaflet. Tricuspid Valve: The tricuspid valve is normal in appearance and function. Trivial tricuspid valve regurgitation. Pulmonic Valve: The pulmonic valve is normal in appearance and function. Aorta: The aorta is normal. Pericardium: Trivial pericardial effusion. l1n (No Signature Object) Patient: JENNIFER GARCIA Study Date: 08/24/2017 Page 2 of 2 01:34 PM [id number]
--- NOTE | 2017-08-28 10:11 | ECHO ---
[email or web address] [address] Main: [phone] Fax: Transesophageal Echocardiography Name: JENNIFER GARCIA MR#: [id number] Study Date: 08/24/2017 Study Time: 01:34 PM Date of : 1960 Age: 57 year(s) Height: ( ) Weight: ( ) BSA: Gender: Female Examination: JO ANN Indication: Pre EP Image Quality: Contrast: Requested by: Beni Mora Heart Rate: Rhythm: BP: / Procedure Staff Pharmacy Technician Instructor: Chacorta Chambers Reading Physician: Beni Mora Requesting Provider: JO ANN Exam Details Conclusions: Normal global systolic LV function. Moderate mitral valve stenosis is present. The mitral valve appears rheumatic with a mean PG of 6 mmHg.. Measurements: Chambers Valvular Assessment AV/MV Valvular Assessment TV/PV Normal Normal Normal Name Value Range Name Value Range Name Value Range MV meanP mmHg ( - ) Additional Measurements: Valvular Assessment AV/MV Name Value MV VTI: 62.50 cm Findings: Left Ventricle: Normal global systolic LV function. Right Ventricle: Normal RV function. Left Atrial Appendage: Patient: JENNIFER GARCIA Study Date: 08/24/2017 Page 1 of 2 01:34 PM Good color flow doppler in the left atrial appendage. Normal PW-Doppler flow pattern. No thrombus in left appendage. Mitral Valve: Moderate mitral valve stenosis is present. The mitral valve appears rheumatic with a mean PG of 6 mmHg.. Aortic Valve: The aortic valve is normal in appearance and function. The aortic valve is tri-leaflet. Tricuspid Valve: The tricuspid valve is normal in appearance and function. Trivial tricuspid valve regurgitation. Pulmonic Valve: The pulmonic valve is normal in appearance and function. Aorta: The aorta is normal. Pericardium: Trivial pericardial effusion. l1n (No Signature Object) Patient: JENNIFER GARCIA Study Date: 08/24/2017 Page 2 of 2 01:34 PM [id number]
== END 2017-08-25 11:30 | disposition home or self-care (01) ==
LOC: FCATH 11:00 → F2W 15:43
PROVIDERS: ADMIT Internal Medicine Cardiovascular Disease; ATTEND Internal Medicine Cardiovascular Disease
DX: I47.1 Supraventricular tachycardia (principal); I05.9 Rheumatic mitral valve disease, unspecified; Z79.01 Long term (current) use of anticoagulants
CPT/HCPCS: 33282; 93005; 93306; 93312; 93613; 93621; 93623; 93653; C1730; C1732; G0378; C1731; C1764; C1893; J0461; J1644; J2250; J2704; J3010; J3475

== ENCOUNTER → 2018-11-24 | Outpatient (CLI) | payer OTHER | LOC: FIMAGING 09:23 | PROVIDERS: ATTEND Thoracic Surgery (Cardiothoracic Vascular Surgery) | DX: K22.4 Dyskinesia of esophagus (principal); M50.30 Other cervical disc degeneration, unspecified cervical region; I05.0 Rheumatic mitral stenosis ==

== ENCOUNTER 2018-11-29 08:28 | Inpatient (IN) | payer OTHER ==
[2018-11-29] MEDS ORDERED: diphenhydrAMINE 25 MG CAP PO ONE ×2 (08:30→08:49)
[2018-11-29] MEDS ORDERED: FAMOTIDINE 20 MG TAB PO ONE (08:30)
[2018-11-29] MEDS ORDERED: NS 1,000 ML IV ONE (08:30)
[2018-11-29] MEDS ORDERED: DIAZEPAM 5 MG TAB PO ONE (08:30)
[2018-11-29] MEDS ORDERED: ASPIRIN EC 325 MG TAB PO ONE ×2 (08:30→08:49)
[2018-11-29] MEDS ORDERED: FAMOTIDINE 20 MG TAB ONE (08:49)
[2018-11-29] MEDS ORDERED: DIAZEPAM 5 MG TAB ONE (08:49)
[2018-11-29 09:11] LABS: PLATELET COUNT 150 10^3/uL (150-400)
[2018-11-29 09:20] LABS: INR 1.06 (0.83-1.16)
[2018-11-29] MEDS ORDERED: LIDOCAINE 1% 300 MG/30 ML SDV ONE (09:24)
[2018-11-29] MEDS ORDERED: fentaNYL 100 MCG/2 ML INJ ONE (09:24)
[2018-11-29] MEDS ORDERED: VERAPAMIL 5 MG/2 ML VIAL ONE (09:25)
[2018-11-29] MEDS ORDERED: MIDAZOLAM 2 MG/2 ML VIAL ONE (09:25)
[2018-11-29] MEDS ORDERED: HEPARIN 10,000 UNIT/10 ML MDV (1,000 UNIT/ML) ONE (09:25)
[2018-11-29] MEDS ORDERED: IOHEXOL 350mgI/ML (OMNIPAQUE) 150 ML BTL IV ONE (09:26)
--- NOTE | 2018-11-29 09:46 | PDPROPOC ---
Sedation Plan of Care Sedation Plan of Care: vital signs stable, mental status noted, patient educated of risks, benefits, alternatives, patient can tolerate sedation ASA Classification: ASA 2 Planned drugs: fentanyl, midazolam Mallampati Score: Class 1 Mallampati Reference Image: Patient passed 3-3-2 rule?: Yes
[2018-11-29] MEDS ORDERED: NITROGLYCERIN 0.4 MG BTL SL PRN (10:28)
[2018-11-29] MEDS ORDERED: OXYCODONE/APAP 5/325 TAB PO PRN (10:28)
[2018-11-29] MEDS ORDERED: ONDANSETRON 4 MG/2 ML VIAL IVP PRN (10:28)
[2018-11-29] MEDS ORDERED: ATROPINE SULFATE 1 MG/10 ML SYR IVP PRN (10:28)
--- NOTE | 2018-11-29 10:28 | PDDXCAT ---
Diagnostic Cath Note - . Date: 11/29/18 Automotive Airconditioning Mechanic: Cullen Indication: other (Mitral stenosis awaiting surgery) - Procedure Access: right wrist Procedure: left heart catheterization, coronary angiography, left ventriculogram - Materials Left Heart Cath size: 5F Left Heart Cath materials: pigtail, other ([place]) Right Heart Cath size: 5F Right Heart Cath materials: PWP catheter - Findings-Left Heart Catheterization LM: Normal LAD: Normal LCX: Dominant: Normal RCA: Non dominant: Normal EDP: 10 mm of mercury LVEF: 68 Wall motion: Normal - Findings-Right Heart Catheterization RA: 10 mm of mercury PAOP: 25 mm of mercury Complications: None Estimated blood loss: <50ml Closure method: TR Band Assessment: Mitral stenosis with gradient of 14 mm of mercury at rest. Angiographically normal coronary arteries. Normal LV systolic function. Normal pulmonary artery pressures. Plan: Mitral valve replacement Patient Problems: Problems Problem Status Onset Supraventricular tachycardia Acute
--- NOTE | 2018-11-29 14:36 | PDDXCAT ---
Diagnostic Cath Note - . Date: 11/29/18 Patient Problems: Problems Problem Status Onset Supraventricular tachycardia Acute
[2018-11-29] MEDS ORDERED: CHLORHEXIDINE GLUC HIBICLENS 118 ML BTL TP SCH (21:00)
[2018-11-29] MEDS: MUPIROCIN 2% 1 APP/GM OINT *BID NS SCH (21:58)
[2018-11-29] MEDS: HYDROCODONE/APAP 5/325 TAB PO PRN (21:58)
[2018-11-30] MEDS: HYDROCODONE/APAP 5/325 TAB PO PRN ×2 (05:30→17:57)
[2018-11-30] MEDS ORDERED: NOREPINEPHRINE BITARTRATE 16 MG in NS 250 ML IV ONE (06:00)
[2018-11-30] MEDS ORDERED: MANNITOL 25% 12.5 GM/50 ML VIAL IVP ONE (06:00)
[2018-11-30] MEDS ORDERED: AMINOCAPROIC ACID 5 GM/20 ML VIAL IV ONE (06:00)
[2018-11-30] MEDS ORDERED: niCARdipine/NACL 200 ML IV ONE (06:00)
[2018-11-30] MEDS ORDERED: MUPIROCIN 2% 22 GM OINT NS ONE (06:00)
[2018-11-30] MEDS ORDERED: CARDIOPLEGIC SOLUTION 1,052.8 ML PF ONE (06:00)
[2018-11-30] MEDS ORDERED: PHENYLEPHRINE HCL 50 MG in NS 250 ML IV ONE (06:00)
[2018-11-30] MEDS ORDERED: CITRATE DEXTROSE SOLN 500 ML BAG MISC ONE (06:00)
[2018-11-30] MEDS ORDERED: INSULIN REGULAR HUMAN 100 UNIT in NS 100 ML IV ONE (06:00)
[2018-11-30] MEDS ORDERED: ceFAZolin 2 GM/DEXTROSE 100 ML IV ONE (06:00)
[2018-11-30] MEDS ORDERED: METOPROLOL TARTRATE 25 MG TAB PO ONE (06:00)
[2018-11-30] MEDS ORDERED: LR 1,000 ML IV ONE (06:13)
[2018-11-30] MEDS ORDERED: DOPamine/DEXTROSE 400 MG/250 ML BAG IV ONE (06:25)
[2018-11-30] MEDS ORDERED: NA BICARBONATE 50 MEQ/50 ML VIAL ONE (06:25)
[2018-11-30] MEDS ORDERED: PROTAMINE SULFATE 50 MG/5 ML VIAL IVP ONE (06:25)
[2018-11-30] MEDS ORDERED: niCARdipine/NACL/200 ML BAG IV ONE (06:25)
[2018-11-30] MEDS ORDERED: MILRINONE/DEXTROSE/100 ML BAG IV ONE (06:25)
[2018-11-30] MEDS ORDERED: CALCIUM CHLORIDE 1 GM/10 ML INJ ONE ×3 (06:25→06:30)
[2018-11-30] MEDS ORDERED: HEPARIN 10,000 UNIT/10 ML MDV (1,000 UNIT/ML) ONE ×2 (06:25→06:27)
[2018-11-30] MEDS ORDERED: AMINOCAPROIC ACID 5 GM/20 ML VIAL ONE ×2 (06:25→06:26)
[2018-11-30] MEDS ORDERED: AMIODARONE HCL 150 MG/3 ML VIAL ONE ×2 (06:25→06:27)
[2018-11-30] MEDS ORDERED: ADENOSINE 6 MG/2 ML VIAL ONE (06:26)
[2018-11-30] MEDS ORDERED: SODIUM BICARBONATE 50 MEQ/50 ML SYR ONE (06:26)
[2018-11-30] MEDS ORDERED: NITROGLYCERIN/D5W 50 MG/250 ML BOTTLE IV ONE (06:26)
[2018-11-30] MEDS ORDERED: ceFAZolin 1 GM VIAL ONE (06:26)
[2018-11-30] MEDS ORDERED: ALBUMIN 5% 250 ML BOTTLE IV ONE (06:26)
[2018-11-30] MEDS ORDERED: LIDOCAINE 2% 100 MG/5 ML SYR ONE (06:26)
[2018-11-30] MEDS ORDERED: MAGNESIUM SULFATE 1 GM/2 ML VIAL ONE (06:27)
[2018-11-30] MEDS ORDERED: CITRATE DEXTROSE SOLN 500 ML BAG ONE (06:27)
[2018-11-30] MEDS ORDERED: methylPREDNISolone SOD SUCC 1 GM/8 ML VIAL ONE (06:27)
[2018-11-30] MEDS ORDERED: MINERAL OIL 10 ML VIAL ONE (06:42)
[2018-11-30] MEDS ORDERED: MIDAZOLAM 2 MG/2 ML VIAL IVP ONE (06:54)
--- NOTE | 2018-11-30 06:54 | PDANEPAE ---
ANE History of Present Illness 58 yo for mvr/maze ANE Past Medical History - Cardiovascular History Hx Hypertension: No Hx Arrhythmias: Yes Hx Chest Pain: No Hx Coronary Artery / Peripheral Vascular Disease: No Hx CHF / Valvular Disease: Yes Hx Palpitations: Yes - Pulmonary History Hx COPD: No Hx Asthma/Reactive Airway Disease: No Hx Recent Upper Respiratory Infection: No Hx Oxygen in Use at Home: No Hx Sleep Apnea: No Sleep Apnea Screening Result - Last Documented: Negative - Endocrine History Hx Diabetes: No - Chronic Pain History Chronic Pain: No ANE Review of Systems Review of Systems: - Exercise capacity METS (RN): 4 METS ANE Patient History - Allergies Allergies/Adverse Reactions: No Known Allergies Allergy (Unverified 08/17/17 10:15) - Home Medications Home medications: home medication list seen and reviewed Home Medications: Warfarin Sodium [Coumadin 5MG (*)] 5 mg PO SUMOTUTHSA 08/19/17 [Last Taken Unknown] Enoxaparin [Lovenox 60 MG (*)] 60 mg PO BID 11/23/18 [Last Taken 11/28/18 09:00] Metoprolol Succinate Xr [Toprol Xl 25 mg (*)] 37.5 mg PO DAILY 11/23/18 [Last Taken 11/28/18 12:00] Triamterene/Hydrochlorothiazid [Triamterene-Hctz 37.5-25 mg Tb] 1 each PO DAILY 11/23/18 [Last Taken 11/28/18 09:00] Warfarin Sodium [Coumadin 7.5MG (*)] 7.5 mg PO WEFR 11/23/18 [Last Taken 16:00] - NPO status NPO Status: no food or drink >8 hours NPO Since - Liquids (Date): 11/29/18 NPO Since - Liquids (Time): 21:30 NPO Since - Solids (Date): 11/29/18 NPO Since - Solids (Time): 21:30 - Smoking Hx Smoking Status: Never smoked ANE Labs/Vital Signs - Labs Result Diagrams: 11/29/18 08:50 11/29/18 08:50 - Vital Signs Blood Pressure: 123/79 Heart Rate: 92 Respiratory Rate: 15 O2 Sat (%): 97 Height: 5 ft 8.9 in Weight: 69.2 kg ANE Physical Exam - Airway Neck exam: FROM Mallampati Score: Class 2 Mouth exam: normal dental/mouth exam - Pulmonary Pulmonary: no respiratory distress - ASA Status ASA Status: III ANE Anesthesia Plan Anesthesia Plan: general endotracheal anesthesia Lines/Monitors: arterial line, central line, JO ANN
--- NOTE | 2018-11-30 06:56 | PDHPUP ---
History & Physical Update H&P update statement: This history and physical update is based on an assessment of the patient which was completed after admission or registration (within 24 hours), but prior to the surgery/procedure. H&P update: H&P reviewed & patient examined, changes noted (interim LHC & carotid US neg for CAD, LVSD, pHTN, or hemodynamically sig carotid stenosis; incidentally noted left thyroid nodule)
[2018-11-30] MEDS ORDERED: DEXMEDETOMIDINE HCL 400 MCG in NS 100 ML IV ONE (07:00)
[2018-11-30] MEDS ORDERED: fentaNYL 100 MCG/2 ML INJ ONE (07:02)
[2018-11-30] MEDS ORDERED: REMIFENTANIL HCL 1 MG VIAL ONE (07:02)
[2018-11-30] MEDS ORDERED: PROPOFOL/EMULSION 500 MG/50 ML BOTTLE IV ONE (07:02)
[2018-11-30] MEDS ORDERED: ROCURONIUM 100 MG/10 ML VIAL ONE (07:03)
[2018-11-30] MEDS ORDERED: DEXAMETHASONE 4 MG/ML VIAL ONE (07:03)
[2018-11-30] MEDS ORDERED: PHENYLEPHRINE HCL 100 MCG/ML SYR ONE (07:16)
[2018-11-30] MEDS ORDERED: ePHEDrine SULFATE 25 MG/5 ML SYR ONE (07:16)
[2018-11-30] MEDS ORDERED: METOPROLOL SUCCINATE XR 25 MG TAB PO SCH (09:00)
--- NOTE | 2018-11-30 09:05 | ASMTCMCOM ---
CM Note CM Note Notes: Pt is a 58 y/o female admitted for a scheduled open heart surgery w/ Dr. Melgar. Pt will most likely d/c independent with outpatient cardiac rehab. CM available for d/c needs. CM available for changes. Plan: Independent Date Signed: 11/30/2018 09:04 AM Electronically Signed By:GEORGE Delgado
[2018-11-30] MEDS ORDERED: POTASSIUM Cl (KCl) 10 MEQ/100 ML BAG IV ONE (10:20)
[2018-11-30] MEDS ORDERED: ONDANSETRON 4 MG/2 ML VIAL ONE (10:23)
[2018-11-30] MEDS ORDERED: POLYETHYLENE GLYCOL 3350 17 GM PKT PO PRN (10:43)
[2018-11-30] MEDS ORDERED: ONDANSETRON DISINTEGRATING 4 MG TAB PO PRN (10:43)
[2018-11-30] MEDS ORDERED: fentaNYL 100 MCG/2 ML INJ IVP PRN (10:43)
[2018-11-30] MEDS ORDERED: ACETAMINOPHEN 325 MG TAB PO PRN (10:43)
[2018-11-30] MEDS ORDERED: niCARdipine/NACL 200 ML IV PRN (10:43)
[2018-11-30] MEDS ORDERED: MAGNESIUM HYDROXIDE 30 ML UDCUP PO PRN (10:43)
[2018-11-30] MEDS ORDERED: LACTULOSE 20 GM/30 ML UDCUP PO PRN (10:43)
[2018-11-30] MEDS ORDERED: PANTOPRAZOLE SODIUM 40 MG VIAL IVP ONE (10:43)
[2018-11-30] MEDS ORDERED: AMIODARONE HCL 200 ML IV ONE (10:43)
[2018-11-30] MEDS ORDERED: SODIUM CL NASAL 45 ML BTL EACHNARE PRN (10:43)
[2018-11-30] MEDS ORDERED: D50W 25 GM/50 ML SYR IVP PRN (10:43)
[2018-11-30] MEDS ORDERED: MEPERIDINE 25 MG/0.5 ML AMP IVP PRN (10:43)
[2018-11-30] MEDS ORDERED: BISACODYL 10 MG SUPP PR PRN (10:43)
[2018-11-30] MEDS ORDERED: ACETAMINOPHEN 650 MG SUPP PR PRN (10:43)
[2018-11-30] MEDS ORDERED: CEPACOL LOZENGE PO PRN (10:43)
[2018-11-30] MEDS ORDERED: NS 1,000 ML IV SCH (10:45)
[2018-11-30] MEDS ORDERED: INSULIN REGULAR HUMAN 100 UNIT in NS 100 ML IV SCH (11:00)
[2018-11-30] MEDS ORDERED: AMIODARONE HCL 200 ML IV SCH (11:00)
[2018-11-30] MEDS ORDERED: NALOXONE HCL 0.4 MG/ML INJ IVP PRN (11:04)
[2018-11-30] MEDS: POTASSIUM Cl (KCl) 50 ML IV PRN ×3 (11:35→15:08)
--- NOTE | 2018-11-30 11:40 | PDMN ---
Medical Necessity Medical necessity: Change to inpt as of 11/30/18 @ 10:57, meets inpt criteria per MD order and [facility] S-290, Cardiac Valve Replacement or Repair, Medicare IP only list, 5 days. 58 y/o w/MS/MR/AFib admitted for tissue MVR, Lambert-Maze 4 procedure and post-op monitoring/treatment
[2018-11-30] MEDS: KETOROLAC 15 MG/1 ML SDV IVP SCH ×2 (11:53→17:57)
[2018-11-30] MEDS: MUPIROCIN 2% 1 APP/GM OINT *BID NS SCH ×2 (12:13→21:05)
--- NOTE | 2018-11-30 12:23 | GOP ---
[f rep st] OPERATIVE REPORT DATE OF OPERATION: 11/30/2018 SURGEON: Chris Melgar DO TECHNICAL SALES MANAGER: Valery Jacobsen, PAC ANESTHESIA: Humphrey Meadows MD PREOPERATIVE DIAGNOSIS: 1. Severe mitral stenosis, mitral regurgitation, secondary to rheumatic heart disease. 2. Longstanding persistent atrial fibrillation. POSTOPERATIVE DIAGNOSIS: 1. Severe mitral stenosis, mitral regurgitation, secondary to rheumatic heart disease. 2. Longstanding persistent atrial fibrillation. PROCEDURE PERFORMED: 1. Mitral valve replacement with #27 Magna bioprosthesis. 2. Biatrial Lambert-Maze 4 with testing and sensing utilizing radiofrequency and cryoablation. FINDINGS: Patient presented with symptomatic mitral stenosis, mitral regurgitation. Coronary cathet erization revealed no significant obstructive disease. She has a history of longstanding persistent atrial fibrillation. Biventricular function was preserved. DESCRIPTION OF PROCEDURE: Patient was consented for surgery, brought to the operating room, intubate d monitoring lines were placed. She was prepped and draped in sterile classical manner. Sternotomy was performed. Patient was heparinized, cannulated with bicaval cannulae and tapes. We then cardiov erted the patient to normal sinus rhythm after confirming no thrombus in the left atrial appendage. We then did sensing and pacing on both pulmonary veins, which revealed no evidence of entrance or exi t block. We then encircled the right pulmonary veins and performed multiple 3-line overlapping ablat ions with the last of each set being 5 seconds or less. We then retested it and found complete evide nce of entrance and exit block. We then initiated cardiopulmonary bypass. With the heart beating, we encircled the left pulmonary ve nous system and performed multiple overlapping ablations with the last of each of the 3 sets being le ss than 5 seconds. We then performed testing and again found entrance and exit block on the left pul monary veins. We then arrested the heart, excised the tip of the left atrial appendage, and performed ablation acro ss the Coumadin ridge through the apex of the appendage and placed a 35 mm clamp. We then marked the terminus of the left and right coronaries on the coronary sinus with methylene blue. We then opened the left atrium. A retractor was placed. I opened the left atrium to within 2 cm of the AV groove, and then performed the remainder of the isthmus and coronary sinus lesion with overlapping cryo of 3 minutes each. Ice ball was noted on the inside. We then performed radiofrequency ablation of the r jason and floor lesions confirming across the left superior pulmonary vein ablation line. I then inspected the valve, which was classically rheumatic with a fishmouth deformity. The anterior leaflet was completely excised. The posterior leaflet was left intact. We debulked the calcium on the posterior leaflet and remained pliable. We then placed interrupted 2-0 Tycron pledgeted mattress sutures through a 27 mm Magna valve securing it with Cor-Knots. The left atrium was then closed. The patient was placed in Trendelenburg. The cross-clamp was removed with suction on the ascending a ortic vent. We then performed atriotomy of the right atrium with a vertical atriotomy and performed the free wall and the superior and inferior vena caval ablation lines with radiofrequency and the ist hmus line with cryoablation. The atrium was closed in a 2-layer fashion. The cross-clamp had been r emoved. Sinus rhythm restored. The patient was kept in Trendelenburg, de-aired without lifting the heart through the apex easily. N o air was identified on echo. She was weaned from bypass. There was a small needle hole jet along t he mitral valve anulus. Otherwise, there was no perivalvular leak and good ventricular function. Th ere is good valvular function. Heparin was reversed with protamine. The cannula was removed and ove rsewn. Two ventricular pacing wires and 2 mediastinal drains were placed. The thymic fat and perica rdium were closed. Chest was closed in standard fashion. Patient was returned to ICU in stable cond ition. /[id number]/MODL
--- NOTE | 2018-11-30 12:28 | GCON ---
[f rep st] CONSULTATION SALES REPRESENTATIVE [employer]INTING [employer]PLIES CONSULTATION REFERRING PHYSICIAN: Chris Melgar DO Patient examined postoperatively. I was asked to see the patient by Dr. Chris Melgar. The patient is a 58-year-old Gabonese female with past medical history including tricuspid regurgitation and mitral stenosis, mitral regurg, PSVT, gastroesophageal reflux disease, hypertension, atrial fibrillation. S he has also undergone an ablation in 2017. She is examined postoperatively after receiving mitral va lve replacement as well as a Lambert maze procedure. The patient only speaks Farsi. History is gleaned from the medical record. I have also used her son as an tradeshow worker. Apparently, final interpretati on is not available at this time. Apparently, she complains of some pain. She has no shortness of b reath. There is no cough or production of sputum. She is still somewhat somnolent from surgery. PAST MEDICAL HISTORY: Significant for atrial fibrillation, hypertension, gastroesophageal reflux dis ease, PSVT with mitral regurg, mitral stenosis. PAST SURGICAL HISTORY: Has had an ablation. MEDICATIONS: At home include metoprolol, pantoprazole, triamterene-hydrochlorothiazide and Coumadin. SOCIAL HISTORY: Lifelong never smoker. No alcohol use. 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 She saul s 2 children. She is originally from [place]. REVIEW OF SYSTEMS: A 10-point review of systems is performed and negative except for what is listed in HPI. PHYSICAL EXAM: VITAL SIGNS: Blood pressure is 123/79, pulse 92, respirations 15, temperature 36.8. Oxygen saturation 97% on room air. GENERAL: She is a well-developed, well-nourished 58-year-old fe male who is resting comfortably, complaining of mild pain. HEENT: Eyes RODRICK, EOMI. Throat shows no erythema on tonsillar hypertrophy. NECK: Supple. There is no cervical adenopathy. CARDIAC: Hear t is regular rate and rhythm with a 2/6 systolic murmur at the left sternal border without radiation. Sternal wound is present. RESPIRATORY: Lungs show diminished breath sounds but no wheeze. GI: A bdomen is soft, nontender. Bowel sounds are present in all 4 quadrants. EXTREMITIES: No clubbing, cyanosis or edema. LABORATORIES: White count is 4.7, hemoglobin 14, hematocrit 44, platelet count is 150. Postop hemog lobin is 10, hematocrit 30. Arterial blood gas: A pH of 7.30, pCO2 of 49, PO2 of 90, bicarbonate is 26, oxygen saturation 96%. Sodium 140, potassium 3.5, chloride 105, CO2 is 25, BUN 11, creatinine 0 .8, glucose is 162. IMPRESSION: 1. Status post mitral valve replacement with a Lambert maze. 2. Respiratory. Stable off mechanical ventilation. 3. Pain. Reasonably well controlled. 4. A history of gastroesophageal reflux disease. 5. A history of hypertension. RECOMMENDATIONS: 1. Adequate pain control. 2. DVT/PE prophylaxis overnight, holding anticoagulation for now. 3. prophylaxis. 4. Early ambulation. 5. PT and OT. 6. Aggressive blood sugar control. Thank you very much for allowing me to participate in the care of this interesting patient. Will fol low along with you. /[id number]/MODL
[2018-11-30] MEDS: ALBUMIN 5% 250 ML IV PRN ×2 (12:30→13:13)
[2018-11-30] MEDS ORDERED: ALBUMIN 5% 500 ML BOTTLE IV ONE (13:32)
[2018-11-30] MEDS ORDERED: ALBUMIN 5% 500 ML IV ONE (14:00)
[2018-11-30] MEDS ORDERED: NOREPINEPHRINE BITARTRATE 16 MG in NS 250 ML IV SCH (14:00)
[2018-11-30] MEDS ORDERED: ALBUMIN 5% 250 ML IV ONE (16:30)
[2018-11-30] MEDS: ceFAZolin 2 GM/DEXTROSE 100 ML IV SCH ×2 (16:44→23:59)
[2018-11-30] MEDS: ONDANSETRON 4 MG/2 ML VIAL IVP PRN (17:51)
[2018-11-30] MEDS: METOCLOPRAMIDE 10 MG/2 ML VIAL IVP PRN (19:20)
[2018-12-01 04:28] LABS: PLATELET COUNT 85 10^3/uL (150-400)
[2018-12-01 04:36] LABS: INR 1.27 (0.83-1.16); PROTIME(PATIENT) 16.1 SEC (12.0-15.0)
[2018-12-01] MEDS: KETOROLAC 15 MG/1 ML SDV IVP SCH ×4 (05:23→17:50)
[2018-12-01] MEDS: HEPARIN 5,000 UNIT/0.5 ML INJ SC SCH ×3 (05:23→19:51)
[2018-12-01] MEDS ORDERED: ALBUMIN 5% 250 ML BOTTLE IV ONE (06:20)
--- NOTE | 2018-12-01 06:29 | SOAPPROG ---
SOAP Progress Note Assessment/Plan: POD#1 s/p MVReplacement #27 Magnsaúl, CM4 Severe mitral stenosis, mitral regurgitation s/p MVR - secondary to rheumatic heart disease. No CAD with pre-op EF 67%. Still requiring levophed @ 2 for labile SBP (90's). MAPs 64-78 & CVP 13-15 overnight. Two episodes of bradycardia (30's) immediately post-op and V-paced at 70 overnight. Hold home triamterene/HCTZ. Longstanding persistent atrial fibrillation/SVT with ablation s/p CM4 - Underlying SB in the 60's this AM. Rare PVCs on telemetry. No AF. BB held d/t bradycardia. Start coumadin today as per CM4 protocol. Cont ASA. Acute blood loss anemia with thrombocytopenia - H/H stable. No transfusions necessary. Platelet 85k today. Pre-op 150k. Monitor. Acute pulmonary insufficiency - extubated in the OR. No lung dz. CXR today with RLL atelectasis vs. congestion vs. fluid. Monitor with serial CXR. Thyroid nodule - incidental 1.4 cm left thyroid nodule found on carotid exam. Dedicated thyroid US recommended. This will need to be arranged as o/p. DVT ppx - Subq heparin until INR >1.8. SCDs. Dispo: Transfer possible later this afternoon Wean Levophed,then dc arterial line Dc Chávez Fluid bolus x 1 Start coumadin at 2.5 Chest tubes to bulbs Subjective: Shoulder pain and discomfort with chávez catheter. Objective: Vital Signs Temp Pulse Resp BP Pulse Ox 36.7 C 70 18 92/51 L 98 12/01/18 04:00 12/01/18 05:00 12/01/18 05:00 12/01/18 05:00 12/01/18 05:00 Laboratory Results 12/01/18 04:15 12/01/18 04:15 11/30/18 12/01/18 12/02/18 05:59 05:59 05:59 Intake Total 100 1962 Output Total 700 1170 Balance -600 792 PT 16.1 SEC (12.0-15.0) H 12/01/18 04:15 INR 1.27 (0.83-1.16) H 12/01/18 04:15 General: NAD, sitting upright HEENT: CVL IJ, MMM Respiratory: 1L NC O2, breathing unlabored Cardiac: V-paced at 70 GI: soft, absent BS : chávez Incisions: sternum CDI DVT prophylaxis: SCDs, coumadin Arterial Line: y, for vasopressors Chávez: y, plan to remove today CVC: yes, need for ongoing management, labs Chest Tubes: y Pacing Wires: y ICD10 Worksheet Patient Problems: Problems Problem Status Onset Acute blood loss anemia Acute Coronary artery disease excluded Acute Left thyroid nodule Acute S/P ablation of atrial fibrillation Acute ~11/30/18 S/P mitral valve replacement with bioprosthetic valve Acute ~11/30/18 Chronic anticoagulation Chronic Longstanding persistent atrial fibrillation Chronic Rheumatic mitral valve disease Chronic Tricuspid insufficiency Chronic
[2018-12-01] MEDS ORDERED: ALBUMIN 5% 250 ML IV ONE ×2 (06:30→08:00)
[2018-12-01] MEDS: ONDANSETRON 4 MG/2 ML VIAL IVP PRN (06:32)
[2018-12-01] MEDS: ceFAZolin 2 GM/DEXTROSE 100 ML IV SCH ×2 (08:26→16:33)
--- NOTE | 2018-12-01 09:02 | PDINTPN ---
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 * History of atrial fibrillation * Acute blood-loss anemia-stable * hypertension * Gastroesophageal reflux disease * Pain-well controlled * VT prophylaxis * Stress ulcer prophylaxis * PT/OT Subjective: Sitting up in bed. Resting comfortably. Pain well tolerated. Breathing easily. Objective: Vital Signs Temp Pulse Resp BP Pulse Ox 37.0 C 74 23 H 90/50 L 94 12/01/18 08:00 12/01/18 08:00 12/01/18 08:00 12/01/18 08:00 12/01/18 08:00 Laboratory Results 12/01/18 04:15 12/01/18 04:15 11/30/18 12/01/18 12/02/18 05:59 05:59 05:59 Intake Total 100 1962 500 Output Total 700 1170 110 Balance -600 792 390 PT 16.1 SEC (12.0-15.0) H 12/01/18 04:15 INR 1.27 (0.83-1.16) H 12/01/18 04:15 - Time Spent With Patient Time Spent With Patient: 35 min of time spent with patient, over 1/2 involved with coordination of care counseling. Case discussed with nursing Physical Exam - Physical Exam General Appearance: alert, no apparent distress EENT: PERRL/EOMI Neck: non-tender, full range of motion Respiratory: crackles (Few basilar), No respiratory distress, No wheezing Cardiac/Chest: normal peripheral pulses, regular rate, rhythm, systolic murmur, extra beats Peripheral Pulses: 2+: carotid (R), carotid (L), femoral (R), femoral (L), dorsalis-pedis (R), dorsalis-pedis (L) Abdomen: normal bowel sounds, non-tender, soft Pelvic Exam: deferred Rectal: deferred Back: Normal inspection Skin: normal color, warm/dry Extremities: normal range of motion, non-tender, normal inspection, normal capillary refill Neuro/Psych: no motor/sensory deficits, alert, normal mood/affect, oriented x 3 ICD10 Worksheet Patient Problems: Problems Problem Status Onset Acute blood loss anemia Acute Coronary artery disease excluded Acute Left thyroid nodule Acute S/P ablation of atrial fibrillation Acute ~11/30/18 S/P mitral valve replacement with bioprosthetic valve Acute ~11/30/18 Chronic anticoagulation Chronic Longstanding persistent atrial fibrillation Chronic Rheumatic mitral valve disease Chronic Tricuspid insufficiency Chronic
[2018-12-01] MEDS: HYDROCODONE/APAP 5/325 TAB PO PRN ×2 (09:08→22:05)
[2018-12-01] MEDS: PANTOPRAZOLE SODIUM 40 MG TAB PO SCH (09:08)
[2018-12-01] MEDS: ASPIRIN 81 MG CHEWABLE TAB PO SCH (09:08)
[2018-12-01] MEDS: MUPIROCIN 2% 1 APP/GM OINT *BID NS SCH ×2 (11:55→21:17)
[2018-12-01] MEDS ORDERED: WARFARIN SODIUM 5 MG TAB PO ONE (16:00)
[2018-12-01] MEDS ORDERED: NS 1,000 ML IV ONE (18:00)
[2018-12-01] MEDS: METOCLOPRAMIDE 10 MG/2 ML VIAL IVP PRN (19:54)
--- NOTE | 2018-12-01 20:56 | SOAPPROG ---
CORDELL Progress Note Assessment/Plan: Assessment:Plan: see full dictated consult to follow 58 y/o [place]ican female s/p valve replacement 2 years of esophageal issues, UGI looks like achalasia needs 1) EGD 2) manometry to dx achalasia then tx could be surgery, balloon or botox issue for her are that we wont be able to do the esoph manometry any time soon - it is an outpt study down in [place] now I am also thinking we might choose Botox as initial tx to allow her to recover from her recent surgery and be able to tolerate a myotomy and fundoplication will discuss with Dr Melgar how soon I can do EGD to make sure no other abnormality causing her sx's and UGI findings Vincenzo Kaur MD 12/01/18 20:52 Objective: Vital Signs Temp Pulse Resp BP Pulse Ox 36.8 C 66 14 83/49 L 92 12/01/18 20:00 12/01/18 20:00 12/01/18 20:00 12/01/18 20:00 12/01/18 20:00 Laboratory Results 12/01/18 04:15 12/01/18 16:35 11/30/18 12/01/18 12/02/18 05:59 05:59 05:59 Intake Total 100 1962 920 Output Total 700 1170 630 Balance -600 792 290 PT 16.1 SEC (12.0-15.0) H 12/01/18 04:15 INR 1.27 (0.83-1.16) H 12/01/18 04:15 ICD10 Worksheet Patient Problems: Problems Problem Status Onset Acute blood loss anemia Acute Coronary artery disease excluded Acute Left thyroid nodule Acute S/P ablation of atrial fibrillation Acute ~11/30/18 S/P mitral valve replacement with bioprosthetic valve Acute ~11/30/18 Chronic anticoagulation Chronic Longstanding persistent atrial fibrillation Chronic Rheumatic mitral valve disease Chronic Tricuspid insufficiency Chronic
[2018-12-01] MEDS ORDERED: NOREPINEPHRINE BITARTRATE 16 MG in NS 250 ML IV SCH ×2 (21:00→21:30)
[2018-12-02] MEDS: KETOROLAC 15 MG/1 ML SDV IVP SCH ×2 (00:42→06:17)
[2018-12-02] MEDS: ceFAZolin 2 GM/DEXTROSE 100 ML IV SCH (00:42)
[2018-12-02] MEDS: HYDROCODONE/APAP 5/325 TAB PO PRN ×2 (03:15→22:47)
[2018-12-02 05:43] LABS: INR 1.34 (0.83-1.16); PROTIME(PATIENT) 16.8 SEC (12.0-15.0)
[2018-12-02] MEDS: HEPARIN 5,000 UNIT/0.5 ML INJ SC SCH (06:16)
--- NOTE | 2018-12-02 06:22 | SOAPPROG ---
SOAP Progress Note Assessment/Plan: Assessment: POD #2 MV replacement with #27 Magna bioprosthesis , Lambert Maze 4 Severe MR/MS secondary to rheumatic heart disease - Coumadin as per CM 4 protocol - AL to be removed, CTs to be removed, Beverly catheter removed 2/7 - PT/OT - Post-op ECHO pending Longstanding persistent atrial fibrillation - s/p CM4 - Post-op rhythm sinus/junctional - Coumadin with INR goal 2-3, duration as per CM 4 protocol (3-6 months) - Keep pacing wires for backup Acute blood loss anemia with thrombocytopenia - No transfusions needed JULIETH secondary to hypovolemia - Fluid bolus this AM - Monitor CR/UOP Left thyroid nodule, 1.4 cm - Outpatient f/u Pre-op dysphagia with likely achalasia - Outpatient f/u as per GI DVT prophylaxis - SCDs/heparin SQ (until therapetic on Coumadin) Disposition - PCU today Subjective: Pain well-controlled. Denies SOB. Objective: Vital Signs Temp Pulse Resp BP Pulse Ox 37.1 C 63 20 94/58 L 93 12/02/18 00:00 12/02/18 06:00 12/02/18 06:00 12/02/18 06:00 12/02/18 06:00 Laboratory Results 12/02/18 05:00 12/02/18 05:00 12/01/18 12/02/18 12/03/18 05:59 05:59 05:59 Intake Total 1962 2381 Output Total 1170 755 Balance 792 1626 PT 16.8 SEC (12.0-15.0) H 12/02/18 05:00 INR 1.34 (0.83-1.16) H 12/02/18 05:00 Physical Exam - Physical Exam General Appearance: WD/WN, alert, no apparent distress EENT: No scleral icterus (R), No scleral icterus (L) Neck: normal inspection Respiratory: No respiratory distress Cardiac/Chest: regular rate, rhythm, bradycardia Abdomen: non-tender, soft, No distended Skin: normal color, warm/dry Extremities: No pedal edema Neuro/Psych: no motor/sensory deficits, alert, normal mood/affect, oriented x 3 ICD10 Worksheet Patient Problems: Problems Problem Status Onset Acute blood loss anemia Acute Coronary artery disease excluded Acute Left thyroid nodule Acute S/P ablation of atrial fibrillation Acute ~11/30/18 S/P mitral valve replacement with bioprosthetic valve Acute ~11/30/18 Chronic anticoagulation Chronic Longstanding persistent atrial fibrillation Chronic Rheumatic mitral valve disease Chronic Tricuspid insufficiency Chronic
--- NOTE | 2018-12-02 09:06 | GCON ---
[f rep st] CONSULTATION DATE OF CONSULTATION: 12/01/2018 REFERRING PHYSICIAN: Chris Melgar DO REASON FOR CONSULTATION: Abnormal upper GI series, possible achalasia. HISTORY OF PRESENT ILLNESS: I have been asked by Dr. Melgar to see this patient in consultation for chief complaint of abnormal upper GI series and possible achalasia. The family is in the room, who is translating for me as the patient is Citizen [place] and does not speak Scottish. She is just status post mitral valve repair and is currently in the ICU recovering from that. She complains of 2 years of progressive problems with swallowing, although denies any significant heartburn, acid reflux, nausea, vomiting but feels she has to swallow multiple times to force her esophagus to pass the bolus. There has been no significant weight loss. She had an upper GI series on November 24, which is reviewed below and is suspicious for achalasia. She has had no travel to [place] so I am not worried about Chagas disease and achalasia does seem like a reasonable diagnosis given her progressive symptoms and upper GI series. PAST MEDICAL HISTORY: Hypertension, GERD, PSVT with mitral regurg, mitral stenosis, atrial fibrillation. PAST SURGICAL HISTORY: Ablation and mitral valve repair. MEDICATIONS: At home include metoprolol, pantoprazole, triamterene, hydrochlorothiazide, and Coumadin. In hospital, her medications are Tylenol p.r.n., [place] p.r.n., aspirin 81 mg daily, atropine sulfate p.r.n., bisacodyl p.r.n., Ancef IV q.8, heparin subcu, Toradol 30 mg IV q.6 hours, lactulose 20 mg p.o. three times daily p.r.n., milk of magnesia p.r.n., Reglan p.r.n., Zofran p.r.n., Protonix 40 mg daily, MiraLAX p.r.n., Senokot 1 tab twice daily, Cepacol throat lozenges, Ultram p.r.n., and Coumadin which has not been given. ALLERGIES: None listed. SOCIAL HISTORY: She has never smoked. She does not drink. She has 2 children. She is originally from [place]. FAMILY HISTORY: No history of achalasia. No GI malignancies to their knowledge. REVIEW OF SYSTEMS: A complete review of systems performed and is negative other than in the HPI. PHYSICAL EXAM: GENERAL: Middle-aged woman sitting in her ICU bed in no acute distress. VITAL SIGNS: Blood pressure is 99/48, pulse is 65, respirations are 14, she is 92% on room air, temperature is 36.8. EYES: Anicteric. RODRICK, EOMI. Mouth: No lesions. Moist membranes. NECK: Supple. Full range of motion. No JVD. BACK: No spine tenderness. No CVA tenderness. LUNGS: Clear anteriorly. CARDIAC: S1, S2. Systolic ejection murmur present. I do not appreciate any rubs or gallops. ABDOMEN: Bowel sounds are normal in pitch and frequency , soft and nontender. No hepatosplenomegaly. EXTREMITIES: No cyanosis, clubbing, or edema. NEUROLOGIC: Cranial nerves intact, nonfocal. SKIN: No stigmata of advanced liver disease. LABORATORY DATA: From today, WBC 11.51, hemoglobin 10.4, hematocrit 32.3, platelet count is 85. ProTime is 16.1, INR is 1.27. Sodium 137, potassium 4.3 , chloride 109, bicarb 19, BUN 18, creatinine 0.7. IMAGING STUDIES: An upper GI series performed November 24, 2018, revealed a markedly diminished esophageal peristalsis with food narrowing distally, suspicious for achalasia. The narrowing precluded the passage of a 13 mm tablet. There were mucosal erosions in the upper esophagus, which could be related to debris. The esophagus was mildly dilated throughout its length. They felt primary peristalsis was normal with markedly diminished secondary esophageal peristalsis. There was no evidence of hiatal hernia. ASSESSMENT: 1. Abnormal upper GI series suspicious for achalasia. 2. History of reflux and dysphagia. 3. Recent valvular surgery. 4. Hypertension. RECOMMENDATIONS: 1. I would like to perform an EGD for evaluation to make sure there is no other abnormalities to cause the findings in the upper GI series. 2. If there is evidence of peptic abnormalities, we could dilate with regular esophageal up to 20 mm balloon. 3. If there is no evidence of peptic strictures, acid reflux, eosinophilic esophagitis, nor masses, then likely that she does have achalasia. Initial treatment could be with Botox injection to temporize so that can recover from her recent valve surgery undergo more definitive therapy with myotomy and fundoplication. 4. Obviously, if this turns out to be a peptic stricture, we will deal with it appropriately and she will not need the achalasia evaluation. 5. If we do end up injecting Botox and have a temporary response, I would recommend esophageal manometry when symptoms recur to make a definitive diagnosis and then the definitive therapy. 6. I will need to discuss with Dr. Melgar when he thinks it is safe to perform EGD in this patient who is status post mitral valve replacement. 7. This will be a higher risk procedure than normal and anesthesia will be present for the safe completion of the procedure. Thank you for allowing me to participate in this patient's healthcare. Do not hesitate to call me with any questions. Copy requested to: Kat Orona MD /[id number]/MODL MTDD
--- NOTE | 2018-12-02 09:18 | PDINTPN ---
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 * History of atrial fibrillation * Acute blood-loss anemia-stable * hypertension * Gastroesophageal reflux disease * Pain-well controlled * VT prophylaxis * Stress ulcer prophylaxis * PT/OT * Ambulation * disposition-okay for transfer to floor 12/02/18 09:16 Subjective: Sitting up in bed. Resting comfortably. Pain well tolerated. Objective: Vital Signs Temp Pulse Resp BP Pulse Ox 37.1 C 63 20 94/58 L 93 12/02/18 00:00 12/02/18 06:00 12/02/18 06:00 12/02/18 06:00 12/02/18 06:00 Laboratory Results 12/02/18 05:00 12/02/18 05:00 12/01/18 12/02/18 12/03/18 05:59 05:59 05:59 Intake Total 1962 2381 Output Total 1170 1155 Balance 792 1226 PT 16.8 SEC (12.0-15.0) H 12/02/18 05:00 INR 1.34 (0.83-1.16) H 12/02/18 05:00 Laboratory Results 12/02/18 05:00 12/02/18 05:00 12/02/18 12/02/18 05:00 05:00 PT 16.8 SEC H SEC (12.0 - 15.0) INR 1.34 H (0.83 - 1.16) Calcium 8.0 mg/dL L mg/dL (8.5 - 10.4) - Time Spent With Patient Time Spent With Patient: 35 min of time spent with patient, over 1/2 involved with coordination of care or counseling. Case discussed with nursing Physical Exam - Physical Exam General Appearance: alert, no apparent distress EENT: PERRL/EOMI Neck: non-tender, supple Respiratory: chest non-tender, lungs clear, normal breath sounds Cardiac/Chest: normal peripheral pulses, regular rate, rhythm, systolic murmur Peripheral Pulses: 2+: carotid (R), carotid (L), femoral (R), femoral (L), dorsalis-pedis (R), dorsalis-pedis (L) Abdomen: normal bowel sounds, non-tender, soft Pelvic Exam: deferred Rectal: deferred Skin: normal color, warm/dry Extremities: normal range of motion, non-tender, normal inspection, normal capillary refill Neuro/Psych: no motor/sensory deficits, alert ICD10 Worksheet Patient Problems: Problems Problem Status Onset Acute blood loss anemia Acute Coronary artery disease excluded Acute Left thyroid nodule Acute S/P ablation of atrial fibrillation Acute ~11/30/18 S/P mitral valve replacement with bioprosthetic valve Acute ~11/30/18 Chronic anticoagulation Chronic Longstanding persistent atrial fibrillation Chronic Rheumatic mitral valve disease Chronic Tricuspid insufficiency Chronic
[2018-12-02] MEDS: SENNOSIDES/DOCUSATE SODIUM TAB PO SCH ×2 (10:09→22:59)
[2018-12-02] MEDS: ASPIRIN 81 MG CHEWABLE TAB PO SCH (10:10)
[2018-12-02] MEDS: MUPIROCIN 2% 1 APP/GM OINT *BID NS SCH (10:10)
[2018-12-02] MEDS: PANTOPRAZOLE SODIUM 40 MG TAB PO SCH (10:10)
--- NOTE | 2018-12-02 13:44 | ECHO ---
[email or web address] [address] Main: [phone] Fax: Transthoracic Echocardiogram Name: JENNIFER GARCIA MR#: [id number] Study Date: 12/02/2018 Study Time: 09:16 AM Date of : 1960 Age: 58 year(s) Height: 175.3 cm (69 in.) Weight: 76.66 kg (169 lb.) BSA: 1.92 m2 Gender: Female Examination: Echo Indication: s/p MV replacement with #27 Magna bioprothesis Image Quality: Technically Difficult Contrast: Requested by: Binu Hogan BP: 102 mmHg/60 mmHg Heart Rate: Rhythm: Indication: s/p MV replacement with #27 Magna bioprothesis Procedure Staff Mail Truck Driver: Catherine Hung RDCS Reading Physician: Flex Berman MD Requesting Provider: Conclusions: Limited study. No pericardial effusion. Mitral valve prosthesis. Ejection fraction 55% with septal dyskinesis consistent with postoperative state. Measurements: Chambers Valvular Assessment AV/MV Valvular Assessment TV/PV Normal Normal Normal Name Value Range Name Value Range Name Value Range Ao Roxann (MM): 2.3 cm (2.2 cm-3.7 MV meanP mmHg ( - ) cm) MV PHT: 0.052 s ( - ) LVDd (2D): 3.9 cm (3.9 cm-5.3 MVA (PHT): 4.2 s ( - ) cm) EF Range: 55-60 % Continued Measurements: Chambers Valvular Assessment AV/MV Name Value Name Value LADs: 3.9 cm MV VTI: 42.50 cm Findings: Left Ventricle: Normal size left ventricle. No LV hypertrophy. The ejection fraction is estimated to be 55-60 %. LV septal motion consistent with post-op state/conduction abnormality.. Mitral Valve: A bioprosthetic mitral valve is in place.. MV gradients are underestimate due to poor angle. MV mean PG is 3mmHG. No MR visualized by color doppler.. Aortic Valve: Aortic valve is not well visualized. Patient: JENNIFER GARCIA Study Date: 12/02/2018 Page 1 of 2 09:16 AM Tricuspid Valve: The tricuspid valve is normal in appearance and function. Mild tricuspid regurgitation is present. Pulmonic Valve: Pulmonary valve not well visualized. Aorta: The aorta is normal. Pericardium: No pericardial effusion. Left pleural effuson with echogenicity within.. Exam Comments: This study was technically difficult. Recommend a repeat lmt echo is a few days when patient can roll completely on her side for better angles to accurately assess MV gradients.. (No Signature Object) Patient: JENNIFER GARCIA Study Date: 12/02/2018 Page 2 of 2 09:16 AM [id number]
--- NOTE | 2018-12-02 15:36 | ASMTCMCOM ---
CM Note CM Note Notes: 12/02/2018 Case Management Note Pt transferred from ICU to PCU today. Discussed with Dr. Melgar's team. Discussed with RN. PT note is recommending home. Case Management d/c poc: Independent with follow up as directed. Case Management available if needs change. Date Signed: 12/02/2018 03:35 PM Electronically Signed By:Ely Ayala RN
[2018-12-02] MEDS ORDERED: WARFARIN SODIUM 2.5 MG TAB PO ONE (16:00)
--- NOTE | 2018-12-02 16:04 | SOAPPROG ---
[facility] Progress Note Assessment/Plan: Assessment:Plan: see full dictated consult to follow 58 y/o [place] female s/p valve replacement 2 years of esophageal issues, UGI looks like achalasia needs 1) EGD 2) manometry to dx achalasia then tx could be surgery, balloon or botox issue for her are that we wont be able to do the esoph manometry any time soon - it is an outpt study down in [place] now I am also thinking we might choose Botox as initial tx to allow her to recover from her recent surgery and be able to tolerate a myotomy and fundoplication will discuss with Dr Melgar how soon I can do EGD to make sure no other abnormality causing her sx's and UGI findings Vincenzo Kaur MD 12/01/18 20:52 12/02/18 15:55 1) abnml UI - suggestive of achalasia, first step is EGD to make sure not acid peptic, cancer. Pt maybe ready early next week for EGD as per Dr Melgar. Dr. Dunn will be picking up inpt service at 5pm today Please contact him when you think it is ok for EGD with propofol Subjective: cc- abnl UGI series, recent valve surgery pt sitting in chair eating some dates no abdo pain Objective: Vital Signs Temp Pulse Resp BP Pulse Ox 36.9 C 69 18 93/65 L 90 L 12/02/18 15:23 12/02/18 15:23 12/02/18 15:23 12/02/18 15:23 12/02/18 15:23 Laboratory Results 12/02/18 05:00 12/02/18 05:00 12/01/18 12/02/18 12/03/18 05:59 05:59 05:59 Intake Total 1962 2381 Output Total 1170 1155 320 Balance 792 1226 -320 PT 16.8 SEC (12.0-15.0) H 12/02/18 05:00 INR 1.34 (0.83-1.16) H 12/02/18 05:00 S1S2 CTa anteriorly +BS, soft ICD10 Worksheet Patient Problems: Problems Problem Status Onset Acute blood loss anemia Acute Coronary artery disease excluded Acute Left thyroid nodule Acute S/P ablation of atrial fibrillation Acute ~11/30/18 S/P mitral valve replacement with bioprosthetic valve Acute ~11/30/18 Chronic anticoagulation Chronic Longstanding persistent atrial fibrillation Chronic Rheumatic mitral valve disease Chronic Tricuspid insufficiency Chronic
[2018-12-03] MEDS: HYDROCODONE/APAP 5/325 TAB PO PRN ×3 (02:52→17:29)
[2018-12-03 03:36] LABS: INR 1.28 (0.83-1.16); PROTIME(PATIENT) 16.2 SEC (12.0-15.0)
[2018-12-03] MEDS: SENNOSIDES/DOCUSATE SODIUM TAB PO SCH ×2 (09:06→21:49)
[2018-12-03] MEDS: ASPIRIN 81 MG CHEWABLE TAB PO SCH (09:06)
[2018-12-03] MEDS: PANTOPRAZOLE SODIUM 40 MG TAB PO SCH (09:06)
[2018-12-03] MEDS: traMADol 50 MG TAB PO PRN ×2 (11:39→21:49)
--- NOTE | 2018-12-03 12:37 | SOAPPROG ---
SOAP Progress Note Assessment/Plan: POD #3: s/p MV replacement with #27 Magna bioprosthesis , Lambert Maze 4 Severe MR/MS secondary to rheumatic heart disease - Coumadin as per 4 protocol - Chest tubes and pacing wires out. - PT/OT - Post-op ECHO showed EF 55%, prosthetic mitral valve with mean gradient of 3 and no MR, mild TR. Longstanding persistent atrial fibrillation s/p CM4 - Post-op rhythm sinus/junctional. No BB. - Coumadin with INR goal 2-3, duration as per 4 protocol (3-6 months). - INR 1.28. Coumadin 2.5mg today. - Pacing wires cut at the skin today. Bilateral pleural effusions - Patient with complaints of increased shortness of breath and chest heaviness today. Currently on RA with good O2 sats. - Small bilat pleural effusions seen on CXR yesterdya. Will check PA/lat CXR today. Acute blood loss anemia with thrombocytopenia - No transfusions needed JULIETH secondary to hypovolemia - Improving - BUN 31/Cr 1.0 with good urine output (1200mls/12hrs). Left thyroid nodule, 1.4 cm - Outpatient f/u Pre-op dysphagia with likely achalasia - Ok for GI to proceed with workup while an inpatient. DVT prophylaxis - SCDs/heparin SQ (until therapetic on Coumadin) Disposition - D/c to home when stable. Subjective: Patient complains of increased SOB and chest heaviness this am. Pain not optimally controlled. Objective: Vital Signs Temp Pulse Resp BP Pulse Ox 36.7 C 65 16 92/56 L 95 12/03/18 11:28 12/03/18 11:28 12/03/18 11:28 12/03/18 11:28 12/03/18 11:28 Laboratory Results 12/03/18 03:15 12/03/18 03:15 12/02/18 12/03/18 12/04/18 05:59 05:59 05:59 Intake Total 2381 400 Output Total 1155 1695 Balance 1226 -1295 PT 16.2 SEC (12.0-15.0) H 12/03/18 03:15 INR 1.28 (0.83-1.16) H 12/03/18 03:15 Physical Exam - Physical Exam General Appearance: WD/WN, alert, no apparent distress Neck: supple Respiratory: lungs clear, normal breath sounds Cardiac/Chest: regular rate, rhythm, other (No murmurs or rubs. Sternum stable , sternotomy c/d/i.) Abdomen: normal bowel sounds, non-tender, soft Skin: normal color, warm/dry Extremities: other (Warm, mild lower extremity edema) Neuro/Psych: alert, normal mood/affect, oriented x 3 ICD10 Worksheet Patient Problems: Problems Problem Status Onset Acute blood loss anemia Acute Coronary artery disease excluded Acute Left thyroid nodule Acute S/P ablation of atrial fibrillation Acute ~11/30/18 S/P mitral valve replacement with bioprosthetic valve Acute ~11/30/18 Chronic anticoagulation Chronic Longstanding persistent atrial fibrillation Chronic Rheumatic mitral valve disease Chronic Tricuspid insufficiency Chronic
--- NOTE | 2018-12-03 12:55 | PDCARPN ---
Cardiology Progress Note Assessment/Plan: Assessment: 1. sp MV replacement, maze, SILVIANO resection 2. Achalasia Plan: 1. EGD per GI next week 2. No indication for pacemaker 3. Warfarin for life. 12/03/18 12:54 Reviewed/Discussed With: family Time Spent with Patient: greater than 25 minutes Time Spent with Patient: Greater than 25 minutes spent on this patients care, greater than 50% of time spent counseling, educating, and coordinating care regarding the above mentioned plan. Objective: Vital Signs (8 Hrs) Temp Pulse Resp BP Pulse Ox 12/03/18 11:28 36.7 C 65 16 92/56 L 95 12/03/18 08:00 36.9 C 68 16 98/54 L 95 Intake/Output (24 Hrs) 12/02/18 12/03/18 12/04/18 11:59 11:59 11:59 Intake Total 1881 400 Output Total 1365 1375 Balance 516 -975 Intake: Oral (ml) 570 400 IV Intake (ml) 100 IV Infused (ml) 1211 Norepinephrine Bitartrate 15 16 mg In Ns 250 ml @ As Directed IV CONT MARQUIS Rx#: [id number] Ns 1,000 ml @ 100 mls/hr 1196 IV ONCE ONE Rx#: [id number] Output: Urine (ml) 1050 1375 Toilet 1050 1375 Chest Tube Output (ml) 315 Location 1 Mediastinal 150 Location 2 Mediastinal 165 Other: Weight 76.9 kg 77.1 kg Number of Voids Toilet 1 Number of Stools Toilet 1 Result Diagrams: 12/03/18 03:15 12/03/18 03:15 Telemetry: Sinus and junctional rhythm rates 60-75 bpm ICD10 Worksheet Patient Problems: Problems Problem Status Onset Acute blood loss anemia Acute S/P ablation of atrial fibrillation Acute ~11/30/18 S/P mitral valve replacement with bioprosthetic valve Acute ~11/30/18 Left thyroid nodule Acute Chronic anticoagulation Chronic Coronary artery disease excluded Acute Longstanding persistent atrial fibrillation Chronic Tricuspid insufficiency Chronic Rheumatic mitral valve disease Chronic
[2018-12-03] MEDS ORDERED: WARFARIN SODIUM 2.5 MG TAB PO ONE (16:00)
[2018-12-04] MEDS: traMADol 50 MG TAB PO PRN (04:42)
[2018-12-04 04:50] LABS: INR 1.19 (0.83-1.16); PROTIME(PATIENT) 15.3 SEC (12.0-15.0)
--- NOTE | 2018-12-04 09:32 | PDCARPN ---
Cardiology Progress Note Assessment/Plan: Assessment: 1. sp MV replacement, maze, SILVIANO resection 2. Achalasia Plan: 1. EGD per GI next week 2. No indication for pacemaker - junctional rhythm is accessory data junctional rhythm with rates faster than sinus rhythm 3. Warfarin for life. 12/04/18 09:32 Subjective: Feels well, ambulating in the gomez Reviewed/Discussed With: family Objective: Vital Signs (8 Hrs) Temp Pulse Resp BP Pulse Ox 12/04/18 07:36 36.8 C 67 16 99/58 L 99 12/04/18 04:00 36.8 C 75 20 107/76 92 Intake/Output (24 Hrs) 12/02/18 12/03/18 12/04/18 11:59 11:59 11:59 Intake Total 1881 400 990 Output Total 1365 1375 920 Balance 516 -975 70 Intake: Oral (ml) 570 400 990 IV Intake (ml) 100 IV Infused (ml) 1211 Norepinephrine Bitartrate 15 16 mg In Ns 250 ml @ As Directed IV CONT MARQUIS Rx#: [id number] Ns 1,000 ml @ 100 mls/hr 1196 IV ONCE ONE Rx#: [id number] Output: Urine (ml) 1050 1375 920 Toilet 1050 1375 920 Chest Tube Output (ml) 315 Location 1 Mediastinal 150 Location 2 Mediastinal 165 Other: Weight 76.9 kg 77.1 kg 76.9 kg Number of Voids Toilet 1 2 Number of Stools Toilet 1 Result Diagrams: 12/03/18 03:15 12/03/18 03:15 Telemetry: Sinus rhythm with intermittent junctional rates that are faster than sinus rhythm ICD10 Worksheet Patient Problems: Problems Problem Status Onset Acute blood loss anemia Acute S/P ablation of atrial fibrillation Acute ~11/30/18 S/P mitral valve replacement with bioprosthetic valve Acute ~11/30/18 Left thyroid nodule Acute Chronic anticoagulation Chronic Coronary artery disease excluded Acute Longstanding persistent atrial fibrillation Chronic Tricuspid insufficiency Chronic Rheumatic mitral valve disease Chronic
[2018-12-04] MEDS: SENNOSIDES/DOCUSATE SODIUM TAB PO SCH ×2 (09:58→21:37)
[2018-12-04] MEDS: PANTOPRAZOLE SODIUM 40 MG TAB PO SCH (09:58)
[2018-12-04] MEDS: ASPIRIN 81 MG CHEWABLE TAB PO SCH (09:58)
[2018-12-04] MEDS: OXYCODONE/APAP 5/325 TAB PO PRN ×2 (11:28→17:23)
--- NOTE | 2018-12-04 12:17 | SOAPPROG ---
[facility] Progress Note Assessment/Plan: POD #4: s/p MV replacement with #27 Magna bioprosthesis , Lambert Maze 4 Severe MR/MS secondary to rheumatic heart disease - Coumadin as per 4 protocol - Chest tubes out and pacing wires were cut yesterday - PT/OT - Post-op ECHO showed EF 55%, prosthetic mitral valve with mean gradient of 3 and no MR, mild TR. Longstanding persistent atrial fibrillation s/p CM4 - Post-op rhythm sinus/junctional. No BB. - Coumadin with INR goal 2-3, duration as per CM 4 protocol (3-6 months). - INR 1.19. Coumadin 5mg today. Bilateral pleural effusions, small - Stable Acute blood loss anemia - H&H dropped to 7.8/24.6 today. Patient asymptomatic and hemodynamically stable. No transfusions needed - Will follow Secondary thrombocytopenia d/t CPB - Plt count 64k (60k) - ASA d/c'd - HIT pending - Will follow JULIETH secondary to hypovolemia - Stable with Cr 1.0 and adequate urine output Left thyroid nodule, 1.4 cm - Outpatient f/u Pre-op dysphagia with likely achalasia - GI to schedule appt for outpatient workup DVT prophylaxis - SCDs - SQ Hep d/c'd d/t low plts Disposition - D/c to home when stable. Subjective: Patient reports continued "chest heaviness" which is relieved with pain meds. Nausea improved. Continues to have difficulty swallowing food. Objective: Vital Signs Temp Pulse Resp BP Pulse Ox 36.8 C 73 18 114/80 95 12/04/18 11:31 12/04/18 11:31 12/04/18 11:31 12/04/18 11:31 12/04/18 11:31 Laboratory Results 12/04/18 09:50 12/03/18 03:15 12/03/18 12/04/18 12/05/18 05:59 05:59 05:59 Intake Total 400 990 600 Output Total 1695 920 Balance -1295 70 600 PT 15.3 SEC (12.0-15.0) H 12/04/18 04:30 INR 1.19 (0.83-1.16) H 12/04/18 04:30 Physical Exam - Physical Exam General Appearance: WD/WN, alert, no apparent distress (f) Neck: supple Respiratory: lungs clear, normal breath sounds Cardiac/Chest: regular rate, rhythm, other (No murmurs or rub. Sternum stable, sternotomy c/d/i. ) Abdomen: normal bowel sounds, non-tender, soft, other (Non-distended) Skin: normal color, warm/dry Extremities: other (Warm, minimal lower extremity edema) Neuro/Psych: alert, normal mood/affect, oriented x 3 ICD10 Worksheet Patient Problems: Problems Problem Status Onset Acute blood loss anemia Acute Coronary artery disease excluded Acute Left thyroid nodule Acute S/P ablation of atrial fibrillation Acute ~11/30/18 S/P mitral valve replacement with bioprosthetic valve Acute ~11/30/18 Chronic anticoagulation Chronic Longstanding persistent atrial fibrillation Chronic Rheumatic mitral valve disease Chronic Tricuspid insufficiency Chronic
--- NOTE | 2018-12-04 14:38 | GCON ---
[f rep st] CONSULTATION ONCOLOGY CONSULTATION REASON FOR CONSULTATION: Thrombocytopenia post cardiac surgery. HISTORY OF PRESENT ILLNESS: The patient is a very pleasant 58-year-old female who has recently undergone mitral valve replacement and is being evaluated for thrombocytopenia. The patient's sister and daughter are present in the room and have acted as a ear mold laboratory technician. The patient is [place]. The oldest CBC I am able to identify in the records is from 2016, when she underwent a cardiac ablation with Dr. Mora. At that time, she had a hematocrit of 42.5 and her platelet count was 128,000. The patient has a long history of mitral valve disease and has been on warfarin for over 10 years. She underwent a Lovenox bridge prior to her recent surgery and received Lovenox on November 26, and . On November 29, she had a cardiac catheterization and received unfractionated heparin. On November 30, she underwent a mitral valve replacement as well as a Maze procedure with Dr. Melgar and heparin was administered during the surgery. On the day of admission for the cardiac catheterization on November 29, her platelet count was 150,000 and the following evening after surgery, her platelet count had fallen to 84,000. Over the last 5 days, platelet counts have been 84,000, 85,000, 80,000, 60,000 yesterday and 62,000 today. Warfarin has been resumed postoperatively and today's INR is 1.2. The patient has had no bleeding or thrombotic symptoms. The patient did not receive any subcutaneous prophylactic heparin postoperatively due to the drop in the platelet count. The patient's sisters report that there has been no prior history of any hematologic abnormalities. She is being evaluated for esophageal dysmotility and a recent upper GI series is suggestive of achalasia. She will likely be undergoing an outpatient evaluation for this in the coming weeks. PAST MEDICAL HISTORY: Tricuspid regurgitation and mitral stenosis. Mitral regurgitation, PSVT, gastroesophageal reflux with possible achalasia, hypertension, atrial fibrillation, and ablation in 2017. PAST SURGICAL HISTORY: Ablation in 2017, and recent mitral valve replacement with Maze procedure. MEDICATIONS: Medications at home included Protonix and hydrochlorothiazide as well as warfarin and metoprolol. SOCIAL HISTORY: She does not smoke. She does not drink alcohol. She has 2 children and is originally from [place]. REVIEW OF SYSTEMS: 10-point review of systems is negative other than HPI. PHYSICAL EXAM: GENERAL: She is a very pleasant, comfortable-appearing female, lying in bed. HEENT: Pupils are equal. Sclerae anicteric. HEART: Regular rate. CHEST: Well healed midline incision. No signs of infection or bleeding. SKIN: No ecchymoses. ABDOMEN: Soft, nontender. EXTREMITIES: No edema. LABORATORY DATA: White blood cell count 5.5, hematocrit 24.6, platelet count 62 ,000. INR 1.2. No evidence of schistocytes on peripheral smear. Creatinine 1.0, hematocrit on admission 44.6, then 32.7 postoperatively. IMPRESSION: This is a 58-year-old female who has undergone mitral valve repair with Maze procedure, who has developed thrombocytopenia in the postoperative setting. The patient has had prior heparin exposure 2 years ago with the ablation and more recently received Lovenox on November 26, , and and then unfractionated heparin during a cardiac catheterization on the and unfractionated heparin intraoperatively during surgery on the . She had a normal CBC on admission, but of note, her platelet count was on low end of normal at 150,000 and also of note, she had a slightly low platelet count 2 years ago during the ablation. The degree of anemia is expected in the postoperative setting . There is no evidence of a microangiopathic hemolytic process. No evidence of DIC. In reviewing her medications,, there does not appear to be a likely culprit in terms of medication induced thrombocytopenia. Protonix can potentially cause thrombocytopenia, but she has been on this termite exterminator as an outpatient. The timing and pattern of the thrombocytopenia is consistent with postoperative consumption. The platelet count has been relatively stable since surgery. Typically with HIT the thrombocytopenia is more severe. Typically, thrombocytopenia from HIT develops 5 to 10 days after heparin exposure, which theoretically is in this timeframe given her Lovenox exposure preoperatively. HIT after LMWH however, is less common. She doesn't have any evidence of a thromboembolic event. HIT antibodies are pending. While I think HIT is possible, I have a low suspicion for that at this time. We have a past history of mild thrombocytopenia and on admission, the patient's platelet count was on the low end of normal. While she has developed moderate thrombocytopenia postoperatively, it has been relatively stable. She has no thromboembolic symptoms. I suspect the moderate thrombocytopenia is most likely due to postoperative consumption. I don't think there is an indication for argatroban at this time. We will continue to follow along with you. Repeat CBC will be drawn tomorrow along with additional labs and will follow up on HIT antibody. /[id number]/MODL ANDID
[2018-12-04] MEDS ORDERED: WARFARIN SODIUM 5 MG TAB PO ONE (16:00)
[2018-12-04] MEDS: HYDROCODONE/APAP 5/325 TAB PO PRN (21:37)
[2018-12-05] MEDS: HYDROCODONE/APAP 5/325 TAB PO PRN ×2 (05:37→10:43)
[2018-12-05 05:58] LABS: PLATELET COUNT 84 10^3/uL (150-400)
[2018-12-05 06:11] LABS: INR 1.26 (0.83-1.16)
--- NOTE | 2018-12-05 08:04 | SOAPPROG ---
SOAP Progress Note Assessment/Plan: POD #5: MV replacement with #27 Magna bioprosthesis , Lambert Maze 4 Severe MR/MS secondary to rheumatic heart disease - Coumadin as per CM 4 protocol - Beverly catheter removed 2/ - PT/OT - Post-op ECHO without issues Longstanding persistent atrial fibrillation - s/p CM4 - Post-op rhythm sinus/junctional - Coumadin with INR goal 2-3, duration as per CM 4 protocol (3-6 months) Acute blood loss anemia with thrombocytopenia - No transfusions needed JULIETH secondary to hypovolemia - Recovered Left thyroid nodule, 1.4 cm - Outpatient f/u Pre-op dysphagia with likely achalasia - Outpatient f/u as per GI DVT prophylaxis - SCDs/ Disposition - Home today with OP cardiac rehab - INR checks as per pre-op Subjective: Denies pain/SOB. Feels ready to go home. Objective: Vital Signs Temp Pulse Resp BP Pulse Ox 36.8 C 75 16 131/79 H 98 12/05/18 04:00 12/05/18 04:00 12/05/18 04:00 12/05/18 04:00 12/05/18 04:00 Laboratory Results 12/05/18 05:45 12/03/18 03:15 12/04/18 12/05/18 12/06/18 05:59 05:59 05:59 Intake Total 990 1600 Output Total 920 1770 Balance 70 -170 PT 16.0 SEC (12.0-15.0) H 12/05/18 05:45 INR 1.26 (0.83-1.16) H 12/05/18 05:45 Physical Exam - Physical Exam General Appearance: WD/WN, alert, no apparent distress EENT: No scleral icterus (R), No scleral icterus (L) Neck: normal inspection Respiratory: No respiratory distress Cardiac/Chest: regular rate, rhythm Abdomen: non-tender, soft, No distended Skin: normal color, warm/dry Extremities: No pedal edema Neuro/Psych: no motor/sensory deficits, alert, normal mood/affect, oriented x 3 ICD10 Worksheet Patient Problems: Problems Problem Status Onset Acute blood loss anemia Acute Coronary artery disease excluded Acute Left thyroid nodule Acute S/P ablation of atrial fibrillation Acute ~11/30/18 S/P mitral valve replacement with bioprosthetic valve Acute ~11/30/18 Chronic anticoagulation Chronic Longstanding persistent atrial fibrillation Chronic Rheumatic mitral valve disease Chronic Tricuspid insufficiency Chronic
[2018-12-05 08:05] VITALS: BP 108/66
--- NOTE | 2018-12-05 08:57 | CPEKG ---
Test Reason : OPEN Blood Pressure : / mmHG Vent. Rate : 075 BPM Atrial Rate : 123 BPM P-R Int : 063 ms QRS Dur : 128 ms QT Int : 443 ms P-R-T Axes : 000 087 037 degrees QTc Int : 495 ms Atrial fibrillation Right bundle branch block Anteroseptal infarct, age indeterminate Confirmed by Beni Mora ([id number]) on 12/05/2018 8:57:29 AM Referred By: Flex Berman Confirmed By:Beni Mora
[2018-12-05] MEDS: SENNOSIDES/DOCUSATE SODIUM TAB PO SCH (09:14)
[2018-12-05] MEDS: PANTOPRAZOLE SODIUM 40 MG TAB PO SCH (09:14)
--- NOTE | 2018-12-05 10:02 | SOAPPROG ---
[facility] Progress Note Assessment/Plan: Assessment: 1) Thrombocytopenia 2) s/p MVR Plan: Overall recovering from her surgery. She is scheduled for D/C today. Her platelets are improving. Clinically the overall picture appears most c/w consumptive coagulopathy and not with HIT. She will be d/c on warfarin. Cardiology plans to monitor her platelet count. HIT ab test was sent and is still pending. Low clinical suspicion for HIT currently and Heparin products have been stopped. I think it is reasonable for her to be seen in the [facility] clinic for follow up to ensure continued improvement. Will ask the clinic to call her with an appt. Plan d/w patient and sister who acts as her school coordinator 12/05/18 09:48 12/05/18 09:51 Subjective: Will be d/c home today. Sister at bedside, she acts as school coordinator for the patient. Objective: Vital Signs Temp Pulse Resp BP Pulse Ox 36.4 C 71 18 108/66 96 12/05/18 08:00 12/05/18 08:00 12/05/18 08:00 12/05/18 08:00 12/05/18 08:00 Laboratory Results 12/05/18 05:45 12/03/18 03:15 12/04/18 12/05/18 12/06/18 05:59 05:59 05:59 Intake Total 990 1600 Output Total 920 1770 Balance 70 -170 PT 16.0 SEC (12.0-15.0) H 12/05/18 05:45 INR 1.26 (0.83-1.16) H 12/05/18 05:45 - Time Spent With Patient Time Spent With Patient: 18 minutes Physical Exam - Physical Exam General Appearance: alert, no apparent distress EENT: PERRL/EOMI Extremities: other (Distal extremities well perfused) ICD10 Worksheet Patient Problems: Problems Problem Status Onset Acute blood loss anemia Acute Coronary artery disease excluded Acute Left thyroid nodule Acute S/P ablation of atrial fibrillation Acute ~11/30/18 S/P mitral valve replacement with bioprosthetic valve Acute ~11/30/18 Chronic anticoagulation Chronic Longstanding persistent atrial fibrillation Chronic Rheumatic mitral valve disease Chronic Tricuspid insufficiency Chronic
--- NOTE | 2018-12-05 10:03 | CPEKG ---
Test Reason : OPEN Blood Pressure : / mmHG Vent. Rate : 074 BPM Atrial Rate : 074 BPM P-R Int : 159 ms QRS Dur : 094 ms QT Int : 465 ms P-R-T Axes : 087 041 -04 degrees QTc Int : 516 ms Sinus rhythm Low voltage, extremity and precordial leads Prolonged QT interval Confirmed by Beni Mora ([id number]) on 12/05/2018 10:03:23 AM Referred By: Chris Melgar Confirmed By:Beni Mora
--- NOTE | 2018-12-05 10:22 | PDDCSUM ---
Discharge Summary Discharge Summary: ADMISSION DATE: 11/30/18 DISCHARGE DATE: 12/05/18 ADMISSION DIAGNOSES 1. Severe MR/MS secondary to rheumatic heart disease 2. Longstanding persistent atrial fibrillation 3. Dysphagia 4. Left thyroid nodule (1.4 cm) DISCHARGE DIAGNOSES 1. Severe MR/MS secondary to rheumatic heart disease 2. Longstanding persistent atrial fibrillation 3. Dysphagia 4. Left thyroid nodule (1.4 cm) 5. Acute blood loss anemia 6. Thrombocytopenia 7. Junction rhythm 8. Acute kidney injury PROCEDURES 11/30/18 (Ramón): MV replacement with #27 Magna bioprosthesis, Lambert Maze 4 HPI 58F with severe MR/MS and LSPAF admitted for elective open heart surgery. HOSPITAL COURSE BY PROBLEM LIST 1. Severe MR/MS secondary to rheumatic heart disease - stable s/p MV replacement with bioprosthesis. Coumadin as per CM 4 protocol. 2. Longstanding persistent atrial fibrillation - s/p CM 4. Sinus/JR on discharge. Coumadin continued as per pre-op with INR goal 2-3, duration as per CM 4 protocol (3-6 months) or longer pending stability of rhythm. Pre-op beta- consuelo stopped d/t JR. 3. Dysphagia - pt with c/o dysphagia prior to surgery with stable symptoms post- operatively. GI consulted and plan will be further w/u 2 weeks after discharge. 4. Left thyroid nodule (1.4 cm) - found incidentally on pre-op w/u. Plan will be for OP f/u to be arranged at surgical f/u. 5. Acute blood loss anemia - stable without the need for transfusions. 6. Thrombocytopenia - platelets trending higher. Low probability of HIT (panel pending). Hematology OK with discharge. Further f/u scheduled. 7. Acute kidney injury - resolution with supportive care. CONDITION Good DISPOSITION Home, self-care PERTINENT DISCHARGE CLINICAL INFORMATION Vitals: 108/66, 71 SR, 96% 2 L/min NC Exam: NAD, SR, No resp distress, ND, soft, NTP, BLE with trace edema ACTIVITY Pt was instructed on sternal precautions, activity limitations, and which problems to call [facility] with. Please see Discharge Plan in chart for specifics. DISCHARGE MEDICATIONS Continue: Coumadin 5 mg DAILY (pt was on 7.5 mg W/F) for INR goal 2-3, Toprol XL New: [place] 5/325 mg Q4H PRN, Tylenol 325-650 mg Q4H PRN, O2 2 L/min Stop NorvascJonathanzaar PENDING STUDIES/LABS 1. CXR prior to surgical follow-up 2. INR as per pre-op management 3. HIT panel pending FOLLOW-UP 1. Chris Melgar (CT Surgery), 12/13/18, 10:45 AM 2. Vincenzo Kaur (GI), 2 weeks as directed 3. Jemal Grove (Hematology), as directed 4. Left thyroid nodule f/u plan
--- NOTE | 2018-12-05 10:36 | PDCARPN ---
Cardiology Progress Note Chief Complaint: s/p MV replacement, maze, and SILVIANO resection Assessment/Plan: Assessment: 1. S/p MV replacement, Maze, and SILVIANO ligation: she has maintained NSR overnight 2. Achalasia Plan: 1. Lifelong anticoagulation with Coumadin 2. No indication for permanent pacemaker - NSR overnight 3. Plan for endoscopy next week or as per GI 12/05/18 12:44 Subjective: No issues overnight, mild "jitteriness" this morning without other associated symptoms Reviewed/Discussed With: multidisciplinary team Time Spent with Patient: greater than 25 minutes Time Spent with Patient: Greater than 25 minutes spent on this patients care, greater than 50% of time spent counseling, educating, and coordinating care regarding the above mentioned plan. Objective: Vital Signs (8 Hrs) Temp Pulse Resp BP Pulse Ox 12/05/18 08:00 36.4 C 71 18 108/66 96 12/05/18 04:00 36.8 C 75 16 131/79 H 98 Intake/Output (24 Hrs) 12/04/18 12/05/18 12/06/18 05:59 05:59 05:59 Intake Total 990 1600 Output Total 920 1770 Balance 70 -170 Intake: Oral (ml) 990 1600 Output: Urine (ml) 920 1770 Toilet 920 1770 Other: Weight 76.9 kg 77.2 kg Number of Voids Toilet 2 3 Number of Stools Toilet 1 Result Diagrams: 12/05/18 05:45 12/03/18 03:15 Telemetry: NSR overnight - Physical Exam Constitutional: WDWN, healthy appearing, no apparent distress Ears, Nose, Mouth, Throat: moist mucous membranes, no oral ulcers, no thrush Cardiovascular: regular rate and rhythm Peripheral Pulses: 2+: dorsalis-pedis (R), dorsalis-pedis (L) Respiratory: clear to auscultate bilat, no crackles, no wheezes Gastrointestinal: normoactive bowel sounds, no tenderness, no masses Neurologic: AAOx3, CN II-XII grossly intact Psychiatric: cooperative, interactive, following commands, not anxious ICD10 Worksheet Patient Problems: Problems Problem Status Onset Acute blood loss anemia Acute Coronary artery disease excluded Acute Left thyroid nodule Acute S/P ablation of atrial fibrillation Acute ~11/30/18 S/P mitral valve replacement with bioprosthetic valve Acute ~11/30/18 Chronic anticoagulation Chronic Longstanding persistent atrial fibrillation Chronic Rheumatic mitral valve disease Chronic Tricuspid insufficiency Chronic
--- NOTE | 2018-12-05 12:07 | PDHOMEO2F ---
Home Oxygen Face to Face Home Orders: I certify that a physician or a nurse practitioner or physician's certified physical therapist assistant has had a [id number] encounter with this patient on the date of this order due to the diagnosis listed, which relates to the primary reason the patient requires home oxygen. Alternative treatments have been tried, or considered, and deemed ineffective. It is anticipated that supplemental oxygen will result in improvement with treatment. Home oxygen qualifying diagnosis: severe MR, atrial fibrillation, SOB Home oxygen secondary diagnosis: s/p MVR/ablation, atelectais, pleural effusions SpO2 on room air (%): 83 Frequency of home oxygen needed: continuous Home oxygen liters per minute: 2 Home oxygen delivery device: nasal cannula Concentrator: Yes E-tanks for mobility and back up: Yes If ordering portable O2, is the patient mobile in the home?: Yes I certify that, based on these findings, the home oxygen is medically necessary for this patient for the following length of time. Length of time home oxygen needed: 1 month
--- NOTE | 2018-12-05 13:32 | ASMTLACE ---
LACE Length of stay for Answers: 4-6 days current admission Acuity / Level of Answers: Yes Care: Did the patient have an inpatient admission? Comorbidities - select Answers: Coronary Artery Disease all that apply # of Emergency department Answers: 0 visits in the last 6 months Score: 9 Date Signed: 12/05/2018 01:32 PM Electronically Signed By:Azucena Bella RN
[2018-12-05] MEDS: traMADol 50 MG TAB PO PRN (13:46)
[2018-12-05] MEDS ORDERED: WARFARIN SODIUM 5 MG TAB PO ONE (16:00)
[2018-12-05] MEDS ORDERED: WARFARIN SODIUM 5 MG TAB PO SCH (16:00)
--- NOTE | 2018-12-07 11:32 | POSTANESTH ---
Post Anesthetic Evaluation Cardiovascular Status: Normal, Stable Respiratory Status: Tx Decrease in SpO2 Level of Consciousness/Mental Status: Can Participate in Eval Pain Control: Adequate, Prn Tx Ordered Nausea/Vomiting Control: Adequate, Prn Tx Ordered Complications Possibly Related to Anesthesia: None Noted
== END 2018-12-05 15:29 | disposition home or self-care (01) | DRG 217 ==
LOC: FCATH 08:28 → F2W 10:30 → F2N 11-30 08:45 → OBSVTOIN 11-30 10:57 → F2W 12-02 15:08
PROVIDERS: ADMIT Thoracic Surgery (Cardiothoracic Vascular Surgery); ATTEND Thoracic Surgery (Cardiothoracic Vascular Surgery)
PROC: B2111ZZ Fluoroscopy of Multiple Coronary Arteries using Low Osmolar Contrast (ICD-10-PCS; 2018-11-29)
PROC: 4A023N8 Measurement of Cardiac Sampling and Pressure, Bilateral, Percutaneous Approach (ICD-10-PCS; 2018-11-29)
PROC: B2151ZZ Fluoroscopy of Left Heart using Low Osmolar Contrast (ICD-10-PCS; 2018-11-29)
PROC: 025T0ZZ Destruction of Left Pulmonary Vein, Open Approach (ICD-10-PCS; principal; 2018-11-30 07:15)
PROC: 02RG08Z Replacement of Mitral Valve with Zooplastic Tissue, Open Approach (ICD-10-PCS; principal; 2018-11-30 07:15)
PROC: 5A1221Z Performance of Cardiac Output, Continuous (ICD-10-PCS; principal; 2018-11-30 07:15)
PROC: 02B70ZK Excision of Left Atrial Appendage, Open Approach (ICD-10-PCS; principal; 2018-11-30 07:15)
DX: I05.0 Rheumatic mitral stenosis (principal); D62 Acute posthemorrhagic anemia; N17.9 Acute kidney failure, unspecified; D69.6 Thrombocytopenia, unspecified; J98.4 Other disorders of lung; R13.10 Dysphagia, unspecified; I48.2 Chronic atrial fibrillation; E04.9 Nontoxic goiter, unspecified; I10 Essential (primary) hypertension; Z79.01 Long term (current) use of anticoagulants; K21.9 Gastro-esophageal reflux disease without esophagitis
CPT/HCPCS: 82435-PO; 82565-PO; 82947-PO; 83605-ER; 84132-PO; 84295-PO; 84520-PO; 85014-ER; 86022-90; 97116-GP; 97162-GP; 97165-GO; 97530-GP; 97535-GO; C1769; G0378; J0153; J0282; J0690; J1100; J1265; J1644; J1815; J1885; J2001; J2150; J2250; J2260; J2270; J2370; J2405; J2704; J2720; J2765; J2930; J3010; J3475; J3480; P9041; Q9967

== ENCOUNTER → 2018-12-13 | Outpatient (CLI) | payer OTHER | LOC: FIMAGING 09:56 | PROVIDERS: ATTEND Thoracic Surgery (Cardiothoracic Vascular Surgery) | DX: J90 Pleural effusion, not elsewhere classified (principal); J98.11 Atelectasis; Z95.2 Presence of prosthetic heart valve ==

== ENCOUNTER 2018-12-21 10:22 | Day surgery (SDC) | payer OTHER ==
[2018-12-21] MEDS ORDERED: LR 1,000 ML IV ONE (11:41)
--- NOTE | 2018-12-21 12:20 | PDANEPAE ---
ANE History of Present Illness EGD for achalasia ANE Past Medical History - Cardiovascular History Hx Hypertension: No Hx Arrhythmias: Yes Hx Chest Pain: No Hx Coronary Artery / Peripheral Vascular Disease: No Hx CHF / Valvular Disease: Yes Hx Palpitations: Yes - Pulmonary History Hx COPD: No Hx Asthma/Reactive Airway Disease: No Hx Recent Upper Respiratory Infection: No Hx Oxygen in Use at Home: No Hx Sleep Apnea: No Sleep Apnea Screening Result - Last Documented: Negative - Neurologic History Hx Cerebrovascular Accident: No Hx Seizures: No Hx Dementia: No - Endocrine History Hx Diabetes: No - Renal History Hx Renal Disorders: No - Liver History Hx Hepatic Disorders: No - Neurological & Psychiatric Hx Hx Neurological and Psychiatric Disorders: No - Cancer History Hx Cancer: No - Congenital Disorder History Hx Congenital Disorders: No - GI History Hx Gastrointestinal Disorders: Yes Gastrointestinal History Comment: dysphagia - Other Health History Other Health History: Sternal incision. anemic - Chronic Pain History Chronic Pain: No - Surgical History Prior Surgeries: [facility] 2019. Ablation 2018 ANE Review of Systems Review of Systems: - Exercise capacity METS (RN): 3 METS ANE Patient History - Allergies Allergies/Adverse Reactions: No Known Allergies Allergy (Verified 12/16/18 16:31) - Home Medications Home medications: home medication list seen and reviewed Home Medications: Acetaminophen [Tylenol 325mg (*)] 12/16/18 [Last Taken 12/21/18] Metoprolol Tartrate 12/16/18 [Last Taken 12/20/18] Warfarin Sodium [Coumadin 5MG (*)] 12/16/18 [Last Taken 12/17/18] - NPO status NPO Status: no food or drink >8 hours NPO Since - Liquids (Date): 12/21/18 NPO Since - Liquids (Time): 03:00 NPO Since - Solids (Date): 12/20/18 NPO Since - Solids (Time): 21:00 - Anes Hx Anes Hx: no prior problems - Smoking Hx Smoking Status: Never smoked - Family Anes Hx Family Hx Anesthesia Complications: none ANE Labs/Vital Signs - Vital Signs Blood Pressure: 129/83 Heart Rate: 88 Respiratory Rate: 16 O2 Sat (%): 97 Height: 157.48 cm Weight: 68.5 kg ANE Physical Exam - Airway Neck exam: FROM Mallampati Score: Class 2 Mouth exam: normal dental/mouth exam - Pulmonary Pulmonary: no respiratory distress - Cardiovascular Cardiovascular: regular rate and rhythym - ASA Status ASA Status: III ANE Anesthesia Plan Anesthesia Plan: GA with mask
--- NOTE | 2018-12-21 12:23 | PDGENHP ---
History & Physical Chief Complaint: abnkl xray, poss achalasia History of Present Illness: poss achalasia by UGI series Pertinent Past, Social, Family History: mvr recent. no tobacco, no alcohol. fh no cc Relevant Physical Exam: A+Ox3. CTA. S1S2. +BS, soft Cardiorespiratory Assessment: class 3
[2018-12-21] MEDS ORDERED: PROPOFOL/EMULSION 500 MG/50 ML BOTTLE IV ONE (12:24)
[2018-12-21] MEDS ORDERED: LIDOCAINE 2% 100 MG/5 ML SYR ONE (12:24)
[2018-12-21] MEDS ORDERED: NALOXONE HCL 0.4 MG/ML INJ IVP PRN (12:49)
[2018-12-21] MEDS ORDERED: DEXAMETHASONE 4 MG/ML VIAL IVP PRN (12:49)
[2018-12-21] MEDS ORDERED: ONDANSETRON 4 MG/2 ML VIAL IVP PRN (12:49)
[2018-12-21] MEDS ORDERED: ACETAMINOPHEN 500 MG TAB PO PRN (12:49)
[2018-12-21] MEDS ORDERED: LABETALOL HCL 5 MG/ML 20 ML MDV IVP PRN (12:49)
[2018-12-21] MEDS ORDERED: MEPERIDINE 25 MG/0.5 ML AMP IVP PRN (12:49)
[2018-12-21] MEDS ORDERED: fentaNYL 100 MCG/2 ML INJ IVP PRN (12:49)
[2018-12-21] MEDS ORDERED: oxyCODONE IR 5 MG TAB PO PRN (12:49)
[2018-12-21] MEDS ORDERED: LR 500 ML IV PRN (12:49)
[2018-12-21] MEDS ORDERED: ALBUTEROL 3 ML DEYVIAL IH PRN (12:49)
[2018-12-21] MEDS ORDERED: PHENYLEPHRINE HCL 100 MCG/ML SYR IVP PRN (12:49)
--- NOTE | 2018-12-21 12:55 | GIREPORT ---
[facility] Surgical Services - Endoscopy Department Patient Name: Cinthia Jeronimo Procedure Date: 12/21/2018 12:01 PM Patient Type: Outpatient Attending MD/ ER Physician: Vincenzo Kaur MD Procedure: Upper GI endoscopy Indications: Dysphagia, Suspected achalasia Providers: Vincenzo Kaur MD Referring MD: Kat Orona MD Medicines: Propofol per Anesthesia = IV general with spont resps Complications: No immediate complications. Estimated blood loss: Minimal. Description of Procedure: After obtaining informed consent, the endoscope was passed under direct vision. Throughout the procedure, the patient's blood pressure, pulse, and oxygen saturations were monitored continuously. The Endoscope was intro duced through the mouth, and advanced to the third part of duodenum. The uppe r GI endoscopy was accomplished without difficulty. The patient tolerated th e procedure well. Findings: The upper third of the esophagus and lower third of the esophagus were normal. Biopsies were obtained from the proximal and distal esophagus w ith cold forceps for histology of suspected eosinophilic esophagitis. Estim ated blood loss was minimal. A hypertonic lower esophageal sphincter was found. A TTS dilator was pa ssed through the scope. Dilation with an 18-19-20 mm x 5.5 cm CRE balloon di lator was performed to 20 mm. The dilation site was examined and showed no ch jose. Estimated blood loss: none. The entire examined stomach was normal. The examined duodenum was normal. The exam was otherwise without abnormality. Estimated Blood Loss: Estimated blood loss was minimal. Post Op Diagnosis: - Normal upper third of esophagus and lower third of esophagus. Biopsie d. - Hypertonic lower esophageal sphincter. Dilated. I suspect this is ach alasia - Normal stomach. - Normal examined duodenum. - The examination was otherwise normal. Recommendation: - Await pathology results. - My office will call with the pathology result with 5-7 days. If you h ave not heard from my office by 12-14, do not assume the pathology is paulina l, please call [phone] to get the pathology results. - Perform routine esophageal manometry at appointment to be scheduled. This will be the gold standard diagnosis of achalasia. - Discharge patient to home (ambulatory). - Return to primary care physician as previously scheduled. - Return to GI clinic after studies are complete. - Patient has a contact number available for emergencies. The signs and symptoms of potential delayed complications were discussed with the pat ient. Return to normal activities tomorrow. Written discharge instructions we re provided to the patient. - Continue present medications. - Thank you for allowing me to help in your patient's care. Do not hesi burrell to call with any questions. Attending Participation: I personally performed the entire procedure. Natasha Rangel M.D Vincenzo Kaur MD 12/21/2018 12:55:27 PM This report has been signed electronicallyMatthew MD Natasha Number of Addenda: 0 Note Initiated On: 12/21/2018 12:01 PM [email or web address]
[2018-12-21] MEDS ORDERED: ACETAMINOPHEN 500 MG TAB ONE (13:35)
[2018-12-21 14:25] VITALS: BP 133/81
== END 2018-12-21 14:25 | disposition home or self-care (01) ==
LOC: FSGY 10:22
PROVIDERS: ATTEND Internal Medicine Gastroenterology
PROC: 0DB18ZX Excision of Upper Esophagus, Via Natural or Artificial Opening Endoscopic, Diagnostic (ICD-10-PCS; principal; 2018-12-21 12:00)
PROC: 0DB38ZX Excision of Lower Esophagus, Via Natural or Artificial Opening Endoscopic, Diagnostic (ICD-10-PCS; principal; 2018-12-21 12:00)
PROC: 0D748ZZ Dilation of Esophagogastric Junction, Via Natural or Artificial Opening Endoscopic (ICD-10-PCS; principal; 2018-12-21 12:00)
DX: K22.0 Achalasia of cardia (principal); E04.1 Nontoxic single thyroid nodule; Z86.79 Personal history of other diseases of the circulatory system
CPT/HCPCS: 43239; 43245; C1726; J2001; J2704

== ENCOUNTER → 2018-12-27 | Outpatient (CLI) | payer OTHER | LOC: FIMAGING 09:50 | PROVIDERS: ATTEND Thoracic Surgery (Cardiothoracic Vascular Surgery) | DX: Z95.2 Presence of prosthetic heart valve (principal); Z98.890 Other specified postprocedural states; Z86.79 Personal history of other diseases of the circulatory system; J98.11 Atelectasis; J90 Pleural effusion, not elsewhere classified ==